=== PATIENT | male | born 1965 | race Caucasian/White ===

== ENCOUNTER 2021-06-21 05:29 | Inpatient (IN) | payer BC, OTHER ==
[2021-06-21 06:19] LABS: HEMATOCRIT 20.5 % (35.4-49); MCH 29.2 pg (25.7-33.7); MCHC 33.3 g/dl (32.0-35.9); MEAN CELL VOLUME 87.7 fl (80-96); MEAN PLT VOLUME 7.9 fl (7.5-11.1); PLATELET COUNT 352 10^3/uL (134-434); RBC 2.34 M/mm3 (4.00-5.60); WHITE BLOOD COUNT 11.4 K/mm3 (4.0-10.0)
[2021-06-21 06:39] LABS: HEMOGLOBIN 6.8 GM/dL (11.7-16.9)
[2021-06-21 06:46] LABS: INR 1.07 (0.83-1.09); PROTHROMBIN TIME (PATIENT) 12.3 SEC (9.7-13.0)
[2021-06-21 06:48] LABS: ALBUMIN 2.2 g/dl (3.4-5.0); CALCIUM 8.1 mg/dL (8.5-10.1)
[2021-06-21 06:49] LABS: ACTIVATED PTT 33.3 SECONDS (25.2-36.5)
[2021-06-21 06:53] LABS: BILIRUBIN,TOTAL 0.3 mg/dL (0.2-1); TOT PROT 5.9 g/dl (6.4-8.2)
[2021-06-21 07:06] LABS: LACTIC ACID 2.5 mmol/L (0.4-2.0)
[2021-06-21 09:23] LABS: ANISOCYTOSIS 2+; MACROCYTOSIS 0
[2021-06-21 10:25] LABS: HEMATOCRIT 22.3 % (35.4-49); HEMOGLOBIN 7.5 GM/dL (11.7-16.9); MCH 29.8 pg (25.7-33.7); MCHC 33.7 g/dl (32.0-35.9); MEAN CELL VOLUME 88.3 fl (80-96); MEAN PLT VOLUME 7.5 fl (7.5-11.1); PLATELET COUNT 317 10^3/uL (134-434); RBC 2.53 M/mm3 (4.00-5.60); RDW 16.1 % (11.9-15.9); WHITE BLOOD COUNT 11.9 K/mm3 (4.0-10.0)
[2021-06-21] MEDS ORDERED: PANTOPRAZOLE SODIUM 40 MG VIAL IVPUSH ONE (10:52)
[2021-06-21] MEDS ORDERED: PANTOPRAZOLE SODIUM 40 MG/100 ML BAG IVPB ONE (11:32)
[2021-06-21] MEDS ORDERED: PANTOPRAZOLE SODIUM 40 MG VIAL ONE (11:32)
[2021-06-21] MEDS ORDERED: DEXTROSE 5%-0.45% SALINE 1,000 ML IV SCH (14:15)
[2021-06-21] MEDS ORDERED: SODIUM CHLORIDE 250 ML IV PRN (15:11)
[2021-06-21 17:23] LABS: EPI CELLS 14 /uL (0-25.1); HYALINE CASTS 0 /uL (0-3.1); URINE APPEARANCE CLEAR; URINE BACTERIA 18 /uL (0-1359); URINE BILIRUBIN NEGATIVE (NEGATIVE); URINE COLOR YELLOW; URINE GLUCOSE (UA) 2+ (NEGATIVE); URINE KETONE NEGATIVE (NEGATIVE); URINE LEUK ESTERASE NEGATIVE (NEGATIVE); URINE NITRITE NEGATIVE (NEGATIVE); URINE PROTEIN 4+ (NEGATIVE); URINE RBC 10 /uL (0-23.9); URINE UROBILINOGEN 0.2 mg/dL (0.2-1.0); URINE WBC 9 /uL (0-25.8)
[2021-06-21] MEDS ORDERED: PANTOPRAZOLE SODIUM 40 MG VIAL IVPUSH SCH (22:00)
[2021-06-22 07:00] LABS: EOS % 2.8 % (0-4.5); HEMATOCRIT 23.6 % (35.4-49); HEMOGLOBIN 8.3 GM/dL (11.7-16.9); LYMPH % 5.9 % (8-40); MCH 30.5 pg (25.7-33.7); MCHC 35.1 g/dl (32.0-35.9); MEAN PLT VOLUME 7.2 fl (7.5-11.1); MONO % 7.5 % (3.8-10.2); NEUT % 82.8 % (42.8-82.8); PLATELET COUNT 340 10^3/uL (134-434); RBC 2.72 M/mm3 (4.00-5.60); RDW 15.3 % (11.9-15.9); WHITE BLOOD COUNT 10.6 K/mm3 (4.0-10.0)
[2021-06-22 07:34] LABS: IRON SERUM 41 ug/dL (50-175)
[2021-06-22 07:35] LABS: CALCIUM 7.6 mg/dL (8.5-10.1); TOTAL IRON BINDING CAPACITY 206 ug/dL (250-450)
[2021-06-22 07:36] LABS: MAGNESIUM 2.4 mg/dL (1.8-2.4)
[2021-06-22 07:37] LABS: TOT PROT 5.7 g/dl (6.4-8.2)
[2021-06-22 07:40] LABS: ALBUMIN 2.2 g/dl (3.4-5.0); BLOOD UREA NITROGEN 75.9 mg/dL (7-18)
[2021-06-22 07:42] LABS: PHOSPHOROUS 5.5 mg/dL (2.5-4.9)
[2021-06-22 07:45] LABS: BILIRUBIN,TOTAL 0.5 mg/dL (0.2-1)
[2021-06-22] MEDS ORDERED: CALCIUM ACETATE 667 MG CAPSULE (FP) PO SCH (10:00)
[2021-06-22] MEDS ORDERED: PANTOPRAZOLE SODIUM 40 MG VIAL IVPUSH SCH (10:00)
[2021-06-22] MEDS ORDERED: TAMSULOSIN HCL 0.4 MG CAP PO SCH (10:00)
[2021-06-22 11:08] LABS: SARS-CoV-2 NAA Not Detected (Not Detected)
[2021-06-22] MEDS: INSULIN SLIDING SCALE (NOVOLOG) 1 VIAL SQ SCH (18:04)
[2021-06-22] MEDS ORDERED: SODIUM CHLORIDE 250 ML IV PRN (19:12)
[2021-06-22] MEDS ORDERED: DEXTROSE 5%-0.45% SALINE 1,000 ML IV SCH (19:12)
[2021-06-22] MEDS: PANTOPRAZOLE SODIUM 40 MG VIAL IVPUSH SCH (21:45)
[2021-06-23] MEDS: INSULIN SLIDING SCALE (NOVOLOG) 1 VIAL SQ SCH ×4 (06:01→16:04)
[2021-06-23 09:14] LABS: BASO % 0.9 % (0-2.0); EOS % 2.6 % (0-4.5); HEMATOCRIT 22.3 % (35.4-49); HEMOGLOBIN 7.8 GM/dL (11.7-16.9); LYMPH % 7.4 % (8-40); MCH 30.7 pg (25.7-33.7); MCHC 35.1 g/dl (32.0-35.9); MEAN CELL VOLUME 87.5 fl (80-96); MEAN PLT VOLUME 7.5 fl (7.5-11.1); MONO % 8.3 % (3.8-10.2); NEUT % 80.8 % (42.8-82.8); PLATELET COUNT 360 10^3/uL (134-434); RBC 2.54 M/mm3 (4.00-5.60); RDW 16.2 % (11.9-15.9)
[2021-06-23 09:33] LABS: ALBUMIN 2.3 g/dl (3.4-5.0); CALCIUM 7.6 mg/dL (8.5-10.1)
[2021-06-23 09:37] LABS: CREATININE 4.3 mg/dL (0.55-1.3)
[2021-06-23 09:38] LABS: BILIRUBIN,TOTAL 0.5 mg/dL (0.2-1); TOT PROT 5.9 g/dl (6.4-8.2)
[2021-06-23 09:40] LABS: BLOOD UREA NITROGEN 33.9 mg/dL (7-18)
[2021-06-23] MEDS: PANTOPRAZOLE SODIUM 40 MG VIAL IVPUSH SCH ×2 (09:56→22:59)
[2021-06-23] MEDS ORDERED: PANTOPRAZOLE 40 MG TABLET PO SCH (10:00)
[2021-06-23] MEDS ORDERED: SODIUM CHLORIDE 250 ML IV PRN (12:08)
[2021-06-23] MEDS: hydrALAZINE HCL 25 MG TABLET (FP) PO SCH ×2 (13:04→22:59)
[2021-06-23] MEDS: amLODIPine BESYLATE 10 MG TABLET (FP) PO SCH (13:04)
[2021-06-24] MEDS: hydrALAZINE HCL 25 MG TABLET (FP) PO SCH ×3 (06:50→21:27)
[2021-06-24] MEDS: INSULIN SLIDING SCALE (NOVOLOG) 1 VIAL SQ SCH ×3 (06:54→16:58)
[2021-06-24 09:07] LABS: BASO % 0.9 % (0-2.0); EOS % 3.3 % (0-4.5); HEMATOCRIT 22.3 % (35.4-49); HEMOGLOBIN 7.7 GM/dL (11.7-16.9); LYMPH % 6.7 % (8-40); MCH 30.8 pg (25.7-33.7); MCHC 34.7 g/dl (32.0-35.9); MEAN CELL VOLUME 88.9 fl (80-96); MEAN PLT VOLUME 6.9 fl (7.5-11.1); MONO % 7.5 % (3.8-10.2); NEUT % 81.6 % (42.8-82.8); PLATELET COUNT 359 10^3/uL (134-434); RBC 2.51 M/mm3 (4.00-5.60); RDW 16.3 % (11.9-15.9); WHITE BLOOD COUNT 9.9 K/mm3 (4.0-10.0)
[2021-06-24 09:34] LABS: CALCIUM 8.1 mg/dL (8.5-10.1)
[2021-06-24 09:35] LABS: ALBUMIN 2.3 g/dl (3.4-5.0); BLOOD UREA NITROGEN 45.3 mg/dL (7-18); MAGNESIUM 2.3 mg/dL (1.8-2.4)
[2021-06-24 09:38] LABS: CREATININE 5.8 mg/dL (0.55-1.3)
[2021-06-24 09:39] LABS: BILIRUBIN,TOTAL 0.5 mg/dL (0.2-1)
[2021-06-24] MEDS ORDERED: EPOETIN ALFA-EPBX 10,000 UNIT/ML VIAL IVPUSH ONE (10:45)
[2021-06-24] MEDS ORDERED: PEG 3350/NA SULF BICARB CL/KCL 4000 ML SOLN.RECON PO ONE (13:23)
[2021-06-24] MEDS: PANTOPRAZOLE SODIUM 40 MG VIAL IVPUSH SCH ×2 (13:54→21:26)
[2021-06-24] MEDS: amLODIPine BESYLATE 10 MG TABLET (FP) PO SCH (13:54)
[2021-06-24] MEDS ORDERED: BISACODYL 5 MG TABLET.DR (FP) PO ONE (20:00)
[2021-06-25] MEDS ORDERED: MAGNESIUM CITRATE 300 ML BOTTLE PO ONE ×2 (01:15→03:00)
[2021-06-25] MEDS ORDERED: SODIUM PHOSPHATE/NA BIPHOS 133 ML ENEMA RC ONE (06:00)
[2021-06-25] MEDS ORDERED: MINERAL OIL ENEMA 133 ML ENEMA RC ONE (06:00)
[2021-06-25] MEDS: hydrALAZINE HCL 25 MG TABLET (FP) PO SCH ×3 (06:16→21:45)
[2021-06-25] MEDS: INSULIN SLIDING SCALE (NOVOLOG) 1 VIAL SQ SCH ×3 (06:32→17:08)
[2021-06-25] MEDS: amLODIPine BESYLATE 10 MG TABLET (FP) PO SCH (09:45)
[2021-06-25] MEDS: PANTOPRAZOLE SODIUM 40 MG VIAL IVPUSH SCH ×2 (09:45→21:46)
[2021-06-25 09:48] LABS: BASO % 0.9 % (0-2.0); EOS % 1.5 % (0-4.5); HEMATOCRIT 25.3 % (35.4-49); HEMOGLOBIN 8.6 GM/dL (11.7-16.9); LYMPH % 5.2 % (8-40); MCH 30.8 pg (25.7-33.7); MCHC 34.1 g/dl (32.0-35.9); MEAN CELL VOLUME 90.5 fl (80-96); MEAN PLT VOLUME 7.3 fl (7.5-11.1); NEUT % 85.4 % (42.8-82.8); PLATELET COUNT 424 10^3/uL (134-434); RDW 16.8 % (11.9-15.9); WHITE BLOOD COUNT 10.7 K/mm3 (4.0-10.0)
[2021-06-25 09:52] LABS: INR 1.03 (0.83-1.09); PROTHROMBIN TIME (PATIENT) 11.8 SEC (9.7-13.0)
[2021-06-25 10:12] LABS: ALBUMIN 2.5 g/dl (3.4-5.0); BLOOD UREA NITROGEN 21.6 mg/dL (7-18)
[2021-06-25 10:15] LABS: CREATININE 4.3 mg/dL (0.55-1.3)
[2021-06-25 10:16] LABS: BILIRUBIN,TOTAL 0.7 mg/dL (0.2-1); TOT PROT 6.6 g/dl (6.4-8.2)
[2021-06-25] MEDS ORDERED: SODIUM CHLORIDE 250 ML IV PRN (17:22)
[2021-06-26] MEDS: INSULIN SLIDING SCALE (NOVOLOG) 1 VIAL SQ SCH ×3 (06:21→15:58)
[2021-06-26] MEDS: hydrALAZINE HCL 25 MG TABLET (FP) PO SCH ×3 (06:21→21:02)
[2021-06-26 08:59] LABS: BASO % 0.7 % (0-2.0); EOS % 2.2 % (0-4.5); HEMATOCRIT 24.1 % (35.4-49); HEMOGLOBIN 8.1 GM/dL (11.7-16.9); LYMPH % 3.8 % (8-40); MCH 29.9 pg (25.7-33.7); MCHC 33.6 g/dl (32.0-35.9); MEAN CELL VOLUME 89.1 fl (80-96); MONO % 5.8 % (3.8-10.2); NEUT % 87.5 % (42.8-82.8); PLATELET COUNT 394 10^3/uL (134-434); RDW 16.9 % (11.9-15.9); WHITE BLOOD COUNT 11.1 K/mm3 (4.0-10.0)
[2021-06-26 09:26] LABS: CALCIUM 7.9 mg/dL (8.5-10.1)
[2021-06-26 09:27] LABS: ALBUMIN 2.3 g/dl (3.4-5.0); BLOOD UREA NITROGEN 36.6 mg/dL (7-18)
[2021-06-26 09:29] LABS: CREATININE 5.6 mg/dL (0.55-1.3)
[2021-06-26] MEDS ORDERED: EPOETIN ALFA-EPBX 10,000 UNIT/ML VIAL SQ ONE (09:30)
[2021-06-26 09:31] LABS: BILIRUBIN,TOTAL 0.3 mg/dL (0.2-1); TOT PROT 6.3 g/dl (6.4-8.2)
[2021-06-26] MEDS: amLODIPine BESYLATE 10 MG TABLET (FP) PO SCH (13:01)
[2021-06-26] MEDS: PANTOPRAZOLE SODIUM 40 MG VIAL IVPUSH SCH ×2 (13:01→21:02)
[2021-06-27] MEDS: ASPIRIN 81 MG CHEWABLE TABLETS PO SCH ×2 (00:01→09:32)
[2021-06-27] MEDS: hydrALAZINE HCL 25 MG TABLET (FP) PO SCH ×3 (06:15→22:12)
[2021-06-27] MEDS: INSULIN SLIDING SCALE (NOVOLOG) 1 VIAL SQ SCH ×3 (06:22→16:25)
[2021-06-27] MEDS: amLODIPine BESYLATE 10 MG TABLET (FP) PO SCH (09:33)
[2021-06-27] MEDS: POLYETHYLENE GLYCOL (HEALTHYLAX) 3350 17 GM PACKET PO SCH (09:33)
[2021-06-27] MEDS: PANTOPRAZOLE SODIUM 40 MG VIAL IVPUSH SCH ×2 (09:33→22:12)
[2021-06-27 09:38] LABS: BASO % 0.9 % (0-2.0); EOS % 2.8 % (0-4.5); HEMATOCRIT 24.5 % (35.4-49); HEMOGLOBIN 8.3 GM/dL (11.7-16.9); LYMPH % 7.5 % (8-40); MCH 30.2 pg (25.7-33.7); MCHC 33.8 g/dl (32.0-35.9); MEAN CELL VOLUME 89.3 fl (80-96); MEAN PLT VOLUME 7.5 fl (7.5-11.1); MONO % 6.7 % (3.8-10.2); NEUT % 82.1 % (42.8-82.8); PLATELET COUNT 403 10^3/uL (134-434); RBC 2.74 M/mm3 (4.00-5.60); RDW 16.5 % (11.9-15.9); WHITE BLOOD COUNT 10.3 K/mm3 (4.0-10.0)
[2021-06-27 10:03] LABS: CALCIUM 8.2 mg/dL (8.5-10.1)
[2021-06-27 10:04] LABS: ALBUMIN 2.3 g/dl (3.4-5.0); BLOOD UREA NITROGEN 30.7 mg/dL (7-18); PHOSPHOROUS 4.5 mg/dL (2.5-4.9)
[2021-06-27 10:05] LABS: BILIRUBIN,TOTAL 0.4 mg/dL (0.2-1); MAGNESIUM 2.4 mg/dL (1.8-2.4); TOT PROT 6.2 g/dl (6.4-8.2)
[2021-06-27 10:07] LABS: CREATININE 4.2 mg/dL (0.55-1.3)
[2021-06-27 13:07] LABS: SARS-CoV-2 NAA Not Detected (Not Detected)
[2021-06-27] MEDS: ATORVASTATIN CA 80 MG TABLET (FP) PO SCH ×2 (22:12)
[2021-06-28] MEDS: hydrALAZINE HCL 25 MG TABLET (FP) PO SCH ×3 (06:51→21:54)
[2021-06-28] MEDS: INSULIN SLIDING SCALE (NOVOLOG) 1 VIAL SQ SCH ×3 (06:51→16:55)
[2021-06-28] MEDS ORDERED: SODIUM CHLORIDE 250 ML IV PRN (07:00)
[2021-06-28] MEDS ORDERED: EPOETIN ALFA-EPBX 10,000 UNIT/ML VIAL IVPUSH ONE (07:00)
[2021-06-28 08:13] LABS: EOS % 2.9 % (0-4.5); HEMATOCRIT 24.6 % (35.4-49); HEMOGLOBIN 8.2 GM/dL (11.7-16.9); LYMPH % 4.6 % (8-40); MCH 30.3 pg (25.7-33.7); MCHC 33.3 g/dl (32.0-35.9); MEAN PLT VOLUME 7.4 fl (7.5-11.1); MONO % 7.1 % (3.8-10.2); NEUT % 84.4 % (42.8-82.8); PLATELET COUNT 417 10^3/uL (134-434); RDW 16.6 % (11.9-15.9); WHITE BLOOD COUNT 10.3 K/mm3 (4.0-10.0)
[2021-06-28 08:29] LABS: ALBUMIN 2.3 g/dl (3.4-5.0); BLOOD UREA NITROGEN 39.6 mg/dL (7-18)
[2021-06-28 08:32] LABS: CREATININE 5.5 mg/dL (0.55-1.3)
[2021-06-28 08:33] LABS: BILIRUBIN,TOTAL 0.4 mg/dL (0.2-1); TOT PROT 6.2 g/dl (6.4-8.2)
[2021-06-28] MEDS: amLODIPine BESYLATE 10 MG TABLET (FP) PO SCH (11:04)
[2021-06-28] MEDS: PANTOPRAZOLE SODIUM 40 MG VIAL IVPUSH SCH ×2 (11:04→21:54)
[2021-06-28] MEDS: POLYETHYLENE GLYCOL (HEALTHYLAX) 3350 17 GM PACKET PO SCH (11:05)
[2021-06-28 21:23] LABS: BASO % 1.1 % (0-2.0); HEMATOCRIT 26.3 % (35.4-49); HEMOGLOBIN 8.9 GM/dL (11.7-16.9); LYMPH % 7.9 % (8-40); MEAN CELL VOLUME 88.4 fl (80-96); MEAN PLT VOLUME 7.3 fl (7.5-11.1); MONO % 7.6 % (3.8-10.2); NEUT % 81.4 % (42.8-82.8); PLATELET COUNT 402 10^3/uL (134-434); RBC 2.97 M/mm3 (4.00-5.60); RDW 16.3 % (11.9-15.9); WHITE BLOOD COUNT 9.8 K/mm3 (4.0-10.0)
[2021-06-28] MEDS: ATORVASTATIN CA 80 MG TABLET (FP) PO SCH (21:54)
[2021-06-29] MEDS: hydrALAZINE HCL 25 MG TABLET (FP) PO SCH ×3 (05:57→22:19)
[2021-06-29] MEDS: INSULIN SLIDING SCALE (NOVOLOG) 1 VIAL SQ SCH ×3 (06:06→17:31)
[2021-06-29 07:40] LABS: CALCIUM 7.8 mg/dL (8.5-10.1)
[2021-06-29 07:41] LABS: ALBUMIN 2.3 g/dl (3.4-5.0); BLOOD UREA NITROGEN 17.4 mg/dL (7-18)
[2021-06-29 07:42] LABS: BASO % 1.3 % (0-2.0); EOS % 3.6 % (0-4.5); HEMOGLOBIN 9.5 GM/dL (11.7-16.9); LYMPH % 9.1 % (8-40); MCHC 35.2 g/dl (32.0-35.9); MEAN PLT VOLUME 7.3 fl (7.5-11.1); MONO % 9.3 % (3.8-10.2); NEUT % 76.7 % (42.8-82.8); PLATELET COUNT 378 10^3/uL (134-434); RBC 3.07 M/mm3 (4.00-5.60); RDW 16.6 % (11.9-15.9); WHITE BLOOD COUNT 8.4 K/mm3 (4.0-10.0)
[2021-06-29 07:44] LABS: CREATININE 3.3 mg/dL (0.55-1.3)
[2021-06-29 07:45] LABS: BILIRUBIN,TOTAL 0.5 mg/dL (0.2-1)
[2021-06-29 07:56] LABS: INR 1.08 (0.83-1.09); PROTHROMBIN TIME (PATIENT) 12.4 SEC (9.7-13.0)
[2021-06-29] MEDS: amLODIPine BESYLATE 10 MG TABLET (FP) PO SCH (10:42)
[2021-06-29] MEDS: POLYETHYLENE GLYCOL (HEALTHYLAX) 3350 17 GM PACKET PO SCH (10:43)
[2021-06-29] MEDS: PANTOPRAZOLE SODIUM 40 MG VIAL IVPUSH SCH ×2 (10:56→22:19)
[2021-06-29] MEDS: ATORVASTATIN CA 80 MG TABLET (FP) PO SCH (22:19)
[2021-06-30] MEDS: INSULIN SLIDING SCALE (NOVOLOG) 1 VIAL SQ SCH ×3 (06:12→17:39)
[2021-06-30] MEDS: hydrALAZINE HCL 25 MG TABLET (FP) PO SCH ×3 (06:13→21:22)
[2021-06-30] MEDS: POLYETHYLENE GLYCOL (HEALTHYLAX) 3350 17 GM PACKET PO SCH (09:24)
[2021-06-30] MEDS: amLODIPine BESYLATE 10 MG TABLET (FP) PO SCH (09:24)
[2021-06-30] MEDS: PANTOPRAZOLE SODIUM 40 MG VIAL IVPUSH SCH ×2 (09:25→21:22)
[2021-06-30] MEDS: ATORVASTATIN CA 80 MG TABLET (FP) PO SCH (21:22)
[2021-07-01] MEDS: hydrALAZINE HCL 25 MG TABLET (FP) PO SCH ×4 (06:35→21:08)
[2021-07-01] MEDS: INSULIN SLIDING SCALE (NOVOLOG) 1 VIAL SQ SCH ×3 (06:35→16:49)
[2021-07-01 07:41] LABS: BASO % 1.7 % (0-2.0); EOS % 2.9 % (0-4.5); HEMATOCRIT 22.9 % (35.4-49); HEMOGLOBIN 7.9 GM/dL (11.7-16.9); LYMPH % 11.1 % (8-40); MCH 30.4 pg (25.7-33.7); MCHC 34.5 g/dl (32.0-35.9); MEAN PLT VOLUME 7.2 fl (7.5-11.1); MONO % 10.6 % (3.8-10.2); NEUT % 73.7 % (42.8-82.8); PLATELET COUNT 382 10^3/uL (134-434); RDW 15.9 % (11.9-15.9); WHITE BLOOD COUNT 7.2 K/mm3 (4.0-10.0)
[2021-07-01] MEDS ORDERED: SODIUM CHLORIDE 250 ML IV PRN (08:00)
[2021-07-01] MEDS ORDERED: IRON SUCROSE INJECTION 100 MG in SODIUM CHLORIDE 95 ML IVPB ONE (08:30)
[2021-07-01] MEDS ORDERED: EPOETIN ALFA-EPBX 10,000 UNIT/ML VIAL SQ ONE (08:30)
[2021-07-01] MEDS: PANTOPRAZOLE SODIUM 40 MG VIAL IVPUSH SCH (10:33)
[2021-07-01] MEDS: amLODIPine BESYLATE 10 MG TABLET (FP) PO SCH (10:33)
[2021-07-01] MEDS: POLYETHYLENE GLYCOL (HEALTHYLAX) 3350 17 GM PACKET PO SCH (10:33)
[2021-07-01] MEDS ORDERED: BISACODYL 5 MG TABLET.DR (FP) PO ONE (16:00)
[2021-07-01] MEDS ORDERED: PEG 3350/NA SULF BICARB CL/KCL 4000 ML SOLN.RECON PO ONE (17:00)
[2021-07-01 18:44] LABS: BASO % 1.1 % (0-2.0); EOS % 0.9 % (0-4.5); HEMATOCRIT 23.7 % (35.4-49); HEMOGLOBIN 8.1 GM/dL (11.7-16.9); LYMPH % 6.7 % (8-40); MCH 30.3 pg (25.7-33.7); MCHC 34.2 g/dl (32.0-35.9); MEAN CELL VOLUME 88.5 fl (80-96); MEAN PLT VOLUME 7.5 fl (7.5-11.1); MONO % 8.6 % (3.8-10.2); NEUT % 82.7 % (42.8-82.8); PLATELET COUNT 355 10^3/uL (134-434); RBC 2.68 M/mm3 (4.00-5.60); RDW 16.2 % (11.9-15.9); WHITE BLOOD COUNT 6.5 K/mm3 (4.0-10.0)
[2021-07-01] MEDS: ATORVASTATIN CA 80 MG TABLET (FP) PO SCH (21:08)
[2021-07-02] MEDS: hydrALAZINE HCL 25 MG TABLET (FP) PO SCH ×3 (05:51→21:17)
[2021-07-02] MEDS: INSULIN SLIDING SCALE (NOVOLOG) 1 VIAL SQ SCH ×3 (06:41→17:09)
[2021-07-02] MEDS ORDERED: EPOETIN ALFA-EPBX 10,000 UNIT/ML VIAL SQ ONE (08:00)
[2021-07-02 08:08] LABS: BASO % 1.7 % (0-2.0); EOS % 2.2 % (0-4.5); HEMATOCRIT 23.3 % (35.4-49); HEMOGLOBIN 7.8 GM/dL (11.7-16.9); LYMPH % 9.3 % (8-40); MCHC 33.5 g/dl (32.0-35.9); MEAN CELL VOLUME 89.5 fl (80-96); MEAN PLT VOLUME 7.7 fl (7.5-11.1); MONO % 11.4 % (3.8-10.2); NEUT % 75.4 % (42.8-82.8); PLATELET COUNT 359 10^3/uL (134-434); RDW 15.8 % (11.9-15.9); WHITE BLOOD COUNT 6.7 K/mm3 (4.0-10.0)
[2021-07-02 08:31] LABS: CALCIUM 7.7 mg/dL (8.5-10.1)
[2021-07-02 08:32] LABS: BLOOD UREA NITROGEN 16.8 mg/dL (7-18)
[2021-07-02 08:35] LABS: CREATININE 3.8 mg/dL (0.55-1.3)
[2021-07-02] MEDS: amLODIPine BESYLATE 10 MG TABLET (FP) PO SCH (09:15)
[2021-07-02] MEDS: POLYETHYLENE GLYCOL (HEALTHYLAX) 3350 17 GM PACKET PO SCH (09:16)
[2021-07-02] MEDS: PANTOPRAZOLE SODIUM 40 MG VIAL IVPUSH SCH (09:20)
[2021-07-02] MEDS ORDERED: IRON SUCROSE INJECTION 200 MG in SODIUM CHLORIDE 90 ML IVPB ONE (14:00)
[2021-07-02 18:24] LABS: HEMATOCRIT 22.8 % (35.4-49); HEMOGLOBIN 7.6 GM/dL (11.7-16.9); MCH 29.5 pg (25.7-33.7); MCHC 33.2 g/dl (32.0-35.9); MEAN PLT VOLUME 7.4 fl (7.5-11.1); PLATELET COUNT 343 10^3/uL (134-434); RBC 2.57 M/mm3 (4.00-5.60); WHITE BLOOD COUNT 5.8 K/mm3 (4.0-10.0)
[2021-07-02] MEDS: ATORVASTATIN CA 80 MG TABLET (FP) PO SCH (21:17)
[2021-07-03] MEDS: INSULIN SLIDING SCALE (NOVOLOG) 1 VIAL SQ SCH ×3 (06:14→17:27)
[2021-07-03] MEDS: hydrALAZINE HCL 25 MG TABLET (FP) PO SCH ×3 (06:14→22:36)
[2021-07-03] MEDS ORDERED: SODIUM CHLORIDE 250 ML IV PRN (07:21)
[2021-07-03 07:50] LABS: BASO % 1.2 % (0-2.0); EOS % 1.6 % (0-4.5); HEMATOCRIT 22.1 % (35.4-49); HEMOGLOBIN 7.5 GM/dL (11.7-16.9); MCH 30.4 pg (25.7-33.7); MEAN CELL VOLUME 89.5 fl (80-96); MEAN PLT VOLUME 7.5 fl (7.5-11.1); MONO % 10.6 % (3.8-10.2); NEUT % 79.6 % (42.8-82.8); PLATELET COUNT 341 10^3/uL (134-434); RBC 2.47 M/mm3 (4.00-5.60); RDW 16.5 % (11.9-15.9); RETICULOCYTES 2.57 % (0.5-1.5); WHITE BLOOD COUNT 7.7 K/mm3 (4.0-10.0)
[2021-07-03 07:52] LABS: CALCIUM 7.5 mg/dL (8.5-10.1)
[2021-07-03 07:53] LABS: BLOOD UREA NITROGEN 25.6 mg/dL (7-18)
[2021-07-03 07:56] LABS: CREATININE 5.6 mg/dL (0.55-1.3)
[2021-07-03] MEDS ORDERED: EPOETIN ALFA-EPBX 10,000 UNIT/ML VIAL SQ ONE (08:00)
[2021-07-03] MEDS: ALBUMIN HUMAN 25% 12.5 GM/50 ML VIAL IV SCH ×4 (09:00→11:10)
[2021-07-03] MEDS: amLODIPine BESYLATE 10 MG TABLET (FP) PO SCH ×2 (10:22→11:45)
[2021-07-03] MEDS: PANTOPRAZOLE SODIUM 40 MG VIAL IVPUSH SCH ×2 (10:22→11:46)
[2021-07-03] MEDS: POLYETHYLENE GLYCOL (HEALTHYLAX) 3350 17 GM PACKET PO SCH (10:22)
[2021-07-03 21:33] LABS: HEMOGLOBIN 7.7 GM/dL (11.7-16.9); MCH 29.9 pg (25.7-33.7); MCHC 33.4 g/dl (32.0-35.9); MEAN CELL VOLUME 89.6 fl (80-96); MEAN PLT VOLUME 7.8 fl (7.5-11.1); PLATELET COUNT 382 10^3/uL (134-434); RBC 2.57 M/mm3 (4.00-5.60); RDW 16.2 % (11.9-15.9); WHITE BLOOD COUNT 7.3 K/mm3 (4.0-10.0)
[2021-07-03] MEDS: ATORVASTATIN CA 80 MG TABLET (FP) PO SCH (22:36)
[2021-07-04] MEDS: hydrALAZINE HCL 25 MG TABLET (FP) PO SCH ×3 (06:22→21:19)
[2021-07-04] MEDS: INSULIN SLIDING SCALE (NOVOLOG) 1 VIAL SQ SCH ×3 (06:24→17:33)
[2021-07-04 07:13] LABS: HEMATOCRIT 22.2 % (35.4-49); HEMOGLOBIN 7.7 GM/dL (11.7-16.9); MCH 30.4 pg (25.7-33.7); MCHC 34.6 g/dl (32.0-35.9); MEAN CELL VOLUME 87.8 fl (80-96); MEAN PLT VOLUME 7.5 fl (7.5-11.1); PLATELET COUNT 342 10^3/uL (134-434); RBC 2.52 M/mm3 (4.00-5.60); RDW 15.9 % (11.9-15.9); WHITE BLOOD COUNT 7.7 K/mm3 (4.0-10.0)
[2021-07-04 07:28] LABS: BLOOD UREA NITROGEN 20.4 mg/dL (7-18)
[2021-07-04 07:31] LABS: CREATININE 4.3 mg/dL (0.55-1.3)
[2021-07-04] MEDS: PANTOPRAZOLE SODIUM 40 MG VIAL IVPUSH SCH (10:09)
[2021-07-04] MEDS: POLYETHYLENE GLYCOL (HEALTHYLAX) 3350 17 GM PACKET PO SCH (10:10)
[2021-07-04] MEDS: amLODIPine BESYLATE 10 MG TABLET (FP) PO SCH (10:10)
[2021-07-04 17:34] LABS: EPI CELLS >36 /uL (0-25.1); HYALINE CASTS 5 /uL (0-3.1); PH,URINE 6.5 (5.0-8.0); URINE APPEARANCE TURBID; URINE BACTERIA >9,000 /uL (0-1359); URINE BILIRUBIN NEGATIVE (NEGATIVE); URINE COLOR YELLOW; URINE GLUCOSE (UA) NEGATIVE (NEGATIVE); URINE KETONE NEGATIVE (NEGATIVE); URINE LEUK ESTERASE 3+ (NEGATIVE); URINE NITRITE NEGATIVE (NEGATIVE); URINE PROTEIN 4+ (NEGATIVE); URINE UROBILINOGEN 0.2 mg/dL (0.2-1.0); URINE WBC 21413 /uL (0-25.8)
[2021-07-04 20:20] LABS: URINE RBC 129.2 /uL (0-23.9)
[2021-07-04] MEDS: ATORVASTATIN CA 80 MG TABLET (FP) PO SCH (21:19)
[2021-07-05] MEDS: INSULIN SLIDING SCALE (NOVOLOG) 1 VIAL SQ SCH ×3 (06:17→17:14)
[2021-07-05] MEDS: hydrALAZINE HCL 25 MG TABLET (FP) PO SCH ×3 (06:34→21:29)
[2021-07-05 07:11] LABS: HEMATOCRIT 25.2 % (35.4-49); HEMOGLOBIN 8.5 GM/dL (11.7-16.9); MCH 29.8 pg (25.7-33.7); MCHC 33.7 g/dl (32.0-35.9); MEAN CELL VOLUME 88.5 fl (80-96); MEAN PLT VOLUME 7.4 fl (7.5-11.1); PLATELET COUNT 362 10^3/uL (134-434); RBC 2.84 M/mm3 (4.00-5.60); WHITE BLOOD COUNT 8.4 K/mm3 (4.0-10.0)
[2021-07-05 07:29] LABS: CALCIUM 8.2 mg/dL (8.5-10.1)
[2021-07-05 07:31] LABS: BLOOD UREA NITROGEN 39.2 mg/dL (7-18)
[2021-07-05] MEDS ORDERED: SODIUM CHLORIDE 250 ML IV PRN (07:33)
[2021-07-05 07:34] LABS: CREATININE 6.1 mg/dL (0.55-1.3)
[2021-07-05] MEDS ORDERED: EPOETIN ALFA-EPBX 10,000 UNIT/ML VIAL IVPUSH ONE (08:00)
[2021-07-05] MEDS ORDERED: INSULIN (NOVOLOG) ASPART 100 UNITS/ML 10ML VIAL ONE (11:41)
[2021-07-05] MEDS: PANTOPRAZOLE SODIUM 40 MG VIAL IVPUSH SCH (11:57)
[2021-07-05] MEDS: POLYETHYLENE GLYCOL (HEALTHYLAX) 3350 17 GM PACKET PO SCH (11:58)
[2021-07-05] MEDS: amLODIPine BESYLATE 10 MG TABLET (FP) PO SCH (11:59)
[2021-07-05] MEDS ORDERED: PIPERACILLIN/TAZOBACTAM 2.25 GM VIAL IVPB ONE ×2 (18:09→18:57)
[2021-07-05] MEDS ORDERED: DEXTROSE 5%-WATER - 50 ML IVPB ONE ×2 (18:09→18:57)
[2021-07-05] MEDS: PIPERACILLIN/TAZOB 2.25 GM 2.25 GM in DEXTROSE 5%-WATER - 50 ML IVPB SCH (18:51)
[2021-07-05] MEDS: ATORVASTATIN CA 80 MG TABLET (FP) PO SCH (21:29)
[2021-07-05] MEDS ORDERED: PIPERACILLIN/TAZOB 2.25 GM 2.25 GM in DEXTROSE 5%-WATER - 50 ML IVPB SCH (22:00)
[2021-07-06] MEDS ORDERED: PIPERACILLIN/TAZOBACTAM 2.25 GM VIAL IVPB ONE (05:05)
[2021-07-06] MEDS ORDERED: DEXTROSE 5%-WATER - 50 ML IVPB ONE (05:05)
[2021-07-06] MEDS: hydrALAZINE HCL 25 MG TABLET (FP) PO SCH ×3 (06:23→21:59)
[2021-07-06] MEDS: PIPERACILLIN/TAZOB 2.25 GM 2.25 GM in DEXTROSE 5%-WATER - 50 ML IVPB SCH (06:24)
[2021-07-06] MEDS: INSULIN SLIDING SCALE (NOVOLOG) 1 VIAL SQ SCH ×3 (06:36→16:30)
[2021-07-06 07:43] LABS: HEMATOCRIT 22.6 % (35.4-49); HEMOGLOBIN 7.7 GM/dL (11.7-16.9); MCH 30.3 pg (25.7-33.7); MEAN CELL VOLUME 89.2 fl (80-96); MEAN PLT VOLUME 7.8 fl (7.5-11.1); PLATELET COUNT 313 10^3/uL (134-434); RBC 2.54 M/mm3 (4.00-5.60); RDW 15.8 % (11.9-15.9); WHITE BLOOD COUNT 7.8 K/mm3 (4.0-10.0)
[2021-07-06 08:05] LABS: BLOOD UREA NITROGEN 24.2 mg/dL (7-18); CALCIUM 8.1 mg/dL (8.5-10.1)
[2021-07-06 08:09] LABS: CREATININE 4.3 mg/dL (0.55-1.3)
[2021-07-06] MEDS: TAMSULOSIN HCL 0.4 MG CAP PO SCH (10:24)
[2021-07-06] MEDS: amLODIPine BESYLATE 10 MG TABLET (FP) PO SCH (10:24)
[2021-07-06] MEDS: PANTOPRAZOLE SODIUM 40 MG VIAL IVPUSH SCH (10:24)
[2021-07-06] MEDS: POLYETHYLENE GLYCOL (HEALTHYLAX) 3350 17 GM PACKET PO SCH (10:24)
[2021-07-06] MEDS: ATORVASTATIN CA 80 MG TABLET (FP) PO SCH (21:58)
[2021-07-07] MEDS: hydrALAZINE HCL 25 MG TABLET (FP) PO SCH ×3 (05:53→21:24)
[2021-07-07] MEDS: INSULIN SLIDING SCALE (NOVOLOG) 1 VIAL SQ SCH ×3 (06:44→16:40)
[2021-07-07 07:11] LABS: EOS % 3.7 % (0-4.5); HEMATOCRIT 22.9 % (35.4-49); HEMOGLOBIN 7.6 GM/dL (11.7-16.9); LYMPH % 13.4 % (8-40); MCH 29.6 pg (25.7-33.7); MCHC 33.2 g/dl (32.0-35.9); MEAN CELL VOLUME 89.1 fl (80-96); MEAN PLT VOLUME 7.8 fl (7.5-11.1); MONO % 10.3 % (3.8-10.2); NEUT % 71.6 % (42.8-82.8); PLATELET COUNT 328 10^3/uL (134-434); RBC 2.57 M/mm3 (4.00-5.60); RDW 15.6 % (11.9-15.9); WHITE BLOOD COUNT 7.2 K/mm3 (4.0-10.0)
[2021-07-07 07:28] LABS: ALBUMIN 2.2 g/dl (3.4-5.0); BLOOD UREA NITROGEN 42.5 mg/dL (7-18)
[2021-07-07 07:31] LABS: CREATININE 6.2 mg/dL (0.55-1.3)
[2021-07-07 07:33] LABS: BILIRUBIN,TOTAL 0.6 mg/dL (0.2-1); TOT PROT 6.1 g/dl (6.4-8.2)
[2021-07-07] MEDS: amLODIPine BESYLATE 10 MG TABLET (FP) PO SCH (09:31)
[2021-07-07] MEDS: VITAMIN B COMP W-C 1 EA TABLET (NEPHRO-VITE) PO SCH (09:31)
[2021-07-07] MEDS: PANTOPRAZOLE SODIUM 40 MG VIAL IVPUSH SCH (09:31)
[2021-07-07] MEDS: POLYETHYLENE GLYCOL (HEALTHYLAX) 3350 17 GM PACKET PO SCH (09:32)
[2021-07-07] MEDS: TAMSULOSIN HCL 0.4 MG CAP PO SCH (09:32)
[2021-07-07] MEDS ORDERED: EPOETIN ALFA 10,000 UNIT/1 ML VIAL SQ ONE (10:55)
[2021-07-07] MEDS: ATORVASTATIN CA 80 MG TABLET (FP) PO SCH (21:24)
[2021-07-08] MEDS: hydrALAZINE HCL 25 MG TABLET (FP) PO SCH ×3 (06:21→21:19)
[2021-07-08] MEDS: INSULIN SLIDING SCALE (NOVOLOG) 1 VIAL SQ SCH ×3 (06:54→16:55)
[2021-07-08 07:34] LABS: BASO % 1.3 % (0-2.0); EOS % 3.8 % (0-4.5); HEMATOCRIT 24.5 % (35.4-49); HEMOGLOBIN 8.2 GM/dL (11.7-16.9); LYMPH % 10.7 % (8-40); MCH 29.7 pg (25.7-33.7); MCHC 33.3 g/dl (32.0-35.9); MEAN CELL VOLUME 89.3 fl (80-96); MEAN PLT VOLUME 7.6 fl (7.5-11.1); NEUT % 76.2 % (42.8-82.8); PLATELET COUNT 348 10^3/uL (134-434); RBC 2.75 M/mm3 (4.00-5.60); RDW 15.8 % (11.9-15.9); WHITE BLOOD COUNT 8.2 K/mm3 (4.0-10.0)
[2021-07-08 07:50] LABS: ALBUMIN 2.3 g/dl (3.4-5.0)
[2021-07-08 07:53] LABS: CREATININE 7.3 mg/dL (0.55-1.3)
[2021-07-08 07:54] LABS: BILIRUBIN,TOTAL 0.6 mg/dL (0.2-1); TOT PROT 6.3 g/dl (6.4-8.2)
[2021-07-08 07:56] LABS: CALCIUM 7.8 mg/dL (8.5-10.1)
[2021-07-08 07:58] LABS: BLOOD UREA NITROGEN 59.6 mg/dL (7-18)
[2021-07-08] MEDS: TAMSULOSIN HCL 0.4 MG CAP PO SCH (08:54)
[2021-07-08] MEDS ORDERED: EPOETIN ALFA-EPBX 10,000 UNIT/ML VIAL IVPUSH ONE (09:00)
[2021-07-08] MEDS: PANTOPRAZOLE SODIUM 40 MG VIAL IVPUSH SCH (09:07)
[2021-07-08] MEDS: POLYETHYLENE GLYCOL (HEALTHYLAX) 3350 17 GM PACKET PO SCH (11:37)
[2021-07-08] MEDS: VITAMIN B COMP W-C 1 EA TABLET (NEPHRO-VITE) PO SCH (11:37)
[2021-07-08] MEDS: amLODIPine BESYLATE 10 MG TABLET (FP) PO SCH (11:38)
[2021-07-08] MEDS: ATORVASTATIN CA 80 MG TABLET (FP) PO SCH (21:34)
[2021-07-09] MEDS: INSULIN SLIDING SCALE (NOVOLOG) 1 VIAL SQ SCH ×3 (06:59→17:42)
[2021-07-09] MEDS: hydrALAZINE HCL 25 MG TABLET (FP) PO SCH ×3 (06:59→21:27)
[2021-07-09 08:27] LABS: HEMATOCRIT 24.2 % (35.4-49); HEMOGLOBIN 8.1 GM/dL (11.7-16.9); MCH 29.9 pg (25.7-33.7); MCHC 33.6 g/dl (32.0-35.9); MEAN CELL VOLUME 88.9 fl (80-96); PLATELET COUNT 324 10^3/uL (134-434); RBC 2.73 M/mm3 (4.00-5.60); RDW 15.5 % (11.9-15.9); WHITE BLOOD COUNT 8.1 K/mm3 (4.0-10.0)
[2021-07-09 08:52] LABS: MAGNESIUM 1.9 mg/dL (1.8-2.4)
[2021-07-09 08:55] LABS: CREATININE 4.6 mg/dL (0.55-1.3)
[2021-07-09 08:57] LABS: BLOOD UREA NITROGEN 32.6 mg/dL (7-18)
[2021-07-09] MEDS: POLYETHYLENE GLYCOL (HEALTHYLAX) 3350 17 GM PACKET PO SCH (10:39)
[2021-07-09] MEDS: TAMSULOSIN HCL 0.4 MG CAP PO SCH (10:39)
[2021-07-09] MEDS: amLODIPine BESYLATE 10 MG TABLET (FP) PO SCH (10:39)
[2021-07-09] MEDS: PANTOPRAZOLE SODIUM 40 MG VIAL IVPUSH SCH (10:39)
[2021-07-09] MEDS: VITAMIN B COMP W-C 1 EA TABLET (NEPHRO-VITE) PO SCH (10:39)
[2021-07-09] MEDS: ATORVASTATIN CA 80 MG TABLET (FP) PO SCH (21:26)
[2021-07-10] MEDS: INSULIN SLIDING SCALE (NOVOLOG) 1 VIAL SQ SCH ×3 (06:39→16:53)
[2021-07-10] MEDS: hydrALAZINE HCL 25 MG TABLET (FP) PO SCH ×3 (06:39→22:07)
[2021-07-10] MEDS ORDERED: SODIUM CHLORIDE 250 ML IV PRN (07:00)
[2021-07-10] MEDS ORDERED: EPOETIN ALFA-EPBX 10,000 UNIT/ML VIAL SQ ONE (07:00)
[2021-07-10 07:20] LABS: CALCIUM 8.5 mg/dL (8.5-10.1)
[2021-07-10 07:21] LABS: BLOOD UREA NITROGEN 48.2 mg/dL (7-18); MAGNESIUM 2.2 mg/dL (1.8-2.4)
[2021-07-10 07:24] LABS: CREATININE 5.8 mg/dL (0.55-1.3); PHOSPHOROUS 5.7 mg/dL (2.5-4.9)
[2021-07-10] MEDS: TAMSULOSIN HCL 0.4 MG CAP PO SCH (09:00)
[2021-07-10] MEDS: POLYETHYLENE GLYCOL (HEALTHYLAX) 3350 17 GM PACKET PO SCH (09:00)
[2021-07-10] MEDS: VITAMIN B COMP W-C 1 EA TABLET (NEPHRO-VITE) PO SCH (11:22)
[2021-07-10] MEDS: amLODIPine BESYLATE 10 MG TABLET (FP) PO SCH (11:24)
[2021-07-10] MEDS: PANTOPRAZOLE SODIUM 40 MG VIAL IVPUSH SCH (11:53)
[2021-07-10] MEDS: ATORVASTATIN CA 80 MG TABLET (FP) PO SCH (22:06)
[2021-07-11] MEDS: hydrALAZINE HCL 25 MG TABLET (FP) PO SCH ×3 (06:52→21:47)
[2021-07-11] MEDS: INSULIN SLIDING SCALE (NOVOLOG) 1 VIAL SQ SCH ×3 (06:53→16:48)
[2021-07-11 07:07] LABS: SARS-CoV-2 NAA Not Detected (Not Detected)
[2021-07-11 07:09] LABS: HEMATOCRIT 25.7 % (35.4-49); HEMOGLOBIN 8.7 GM/dL (11.7-16.9); MCH 30.2 pg (25.7-33.7); MCHC 33.8 g/dl (32.0-35.9); MEAN CELL VOLUME 89.4 fl (80-96); MEAN PLT VOLUME 7.8 fl (7.5-11.1); PLATELET COUNT 338 10^3/uL (134-434); RBC 2.87 M/mm3 (4.00-5.60); RDW 15.7 % (11.9-15.9); WHITE BLOOD COUNT 9.8 K/mm3 (4.0-10.0)
[2021-07-11 07:12] LABS: MAGNESIUM 2.1 mg/dL (1.8-2.4)
[2021-07-11 07:15] LABS: CREATININE 4.4 mg/dL (0.55-1.3); PHOSPHOROUS 3.6 mg/dL (2.5-4.9)
[2021-07-11] MEDS: POLYETHYLENE GLYCOL (HEALTHYLAX) 3350 17 GM PACKET PO SCH (09:16)
[2021-07-11] MEDS: PANTOPRAZOLE SODIUM 40 MG VIAL IVPUSH SCH (09:16)
[2021-07-11] MEDS: amLODIPine BESYLATE 10 MG TABLET (FP) PO SCH (09:16)
[2021-07-11] MEDS: TAMSULOSIN HCL 0.4 MG CAP PO SCH (09:16)
[2021-07-11] MEDS: VITAMIN B COMP W-C 1 EA TABLET (NEPHRO-VITE) PO SCH (09:16)
[2021-07-11 12:36] VITALS: BMI 18.6
[2021-07-11] MEDS: ATORVASTATIN CA 80 MG TABLET (FP) PO SCH (21:47)
[2021-07-12] MEDS: hydrALAZINE HCL 25 MG TABLET (FP) PO SCH ×2 (06:04→14:05)
[2021-07-12] MEDS: INSULIN SLIDING SCALE (NOVOLOG) 1 VIAL SQ SCH ×2 (06:11→11:26)
[2021-07-12] MEDS ORDERED: SODIUM CHLORIDE 250 ML IV PRN (07:00)
[2021-07-12] MEDS ORDERED: EPOETIN ALFA-EPBX 10,000 UNIT/ML VIAL IVPUSH ONE (07:00)
[2021-07-12] MEDS ORDERED: PANTOPRAZOLE 40 MG TABLET PO SCH (10:00)
[2021-07-12] MEDS: amLODIPine BESYLATE 10 MG TABLET (FP) PO SCH (10:45)
[2021-07-12] MEDS: TAMSULOSIN HCL 0.4 MG CAP PO SCH (10:45)
[2021-07-12] MEDS: VITAMIN B COMP W-C 1 EA TABLET (NEPHRO-VITE) PO SCH (10:45)
[2021-07-12] MEDS: POLYETHYLENE GLYCOL (HEALTHYLAX) 3350 17 GM PACKET PO SCH (10:57)
[2021-07-12 14:07] VITALS: BP 114/59; PULSE 77; TEMP 97.5
== END 2021-07-12 15:01 | DRG 254 ==
LOC: JER 05:29 → JERBED 11:40 → UNDOADMIN 11:40 → JERBED 06-22 12:09 → J6S 06-22 17:40 → J4W 06-27 18:20
PROVIDERS: ADMIT Internal Medicine
PROC: 30233N1 Transfusion of Nonautologous Red Blood Cells into Peripheral Vein, Percutaneous Approach (ICD-10-PCS; principal; 2021-06-21)
PROC: 5A1D70Z Performance of Urinary Filtration, Intermittent, Less than 6 Hours Per Day (ICD-10-PCS; 2021-06-22)
PROC: 0W3P8ZZ Control Bleeding in Gastrointestinal Tract, Via Natural or Artificial Opening Endoscopic (ICD-10-PCS; 2021-06-28)
PROC: 0DJD8ZZ Inspection of Lower Intestinal Tract, Via Natural or Artificial Opening Endoscopic (ICD-10-PCS; 2021-07-01)
PROC: 0W3P8ZZ Control Bleeding in Gastrointestinal Tract, Via Natural or Artificial Opening Endoscopic (ICD-10-PCS; 2021-07-02)
PROC: 5A1D70Z Performance of Urinary Filtration, Intermittent, Less than 6 Hours Per Day (ICD-10-PCS; 2021-07-03)
PROC: 5A1D70Z Performance of Urinary Filtration, Intermittent, Less than 6 Hours Per Day (ICD-10-PCS; 2021-07-05)
PROC: 5A1D70Z Performance of Urinary Filtration, Intermittent, Less than 6 Hours Per Day (ICD-10-PCS; 2021-07-08)
PROC: 5A1D70Z Performance of Urinary Filtration, Intermittent, Less than 6 Hours Per Day (ICD-10-PCS; 2021-07-10)
PROC: 5A1D70Z Performance of Urinary Filtration, Intermittent, Less than 6 Hours Per Day (ICD-10-PCS; 2021-07-12)
DX: K62.6 Ulcer of anus and rectum (principal); K62.5 Hemorrhage of anus and rectum; K27.4 Chronic or unspecified peptic ulcer, site unspecified, with hemorrhage; E78.5 Hyperlipidemia, unspecified; K21.9 Gastro-esophageal reflux disease without esophagitis; R41.82 Altered mental status, unspecified; N40.0 Benign prostatic hyperplasia without lower urinary tract symptoms; I13.2 Hypertensive heart and chronic kidney disease with heart failure and with stage 5 chronic kidney disease, or end stage renal disease; E87.2 Acidosis; I63.9 Cerebral infarction, unspecified; G93.41 Metabolic encephalopathy; E11.22 Type 2 diabetes mellitus with diabetic chronic kidney disease; N18.6 End stage renal disease; I50.9 Heart failure, unspecified; R82.71 Bacteriuria; K59.00 Constipation, unspecified; K57.30 Diverticulosis of large intestine without perforation or abscess without bleeding; I65.22 Occlusion and stenosis of left carotid artery; N31.9 Neuromuscular dysfunction of bladder, unspecified; F01.50 Vascular dementia, unspecified severity, without behavioral disturbance, psychotic disturbance, mood disturbance, and anxiety; N39.0 Urinary tract infection, site not specified; E43 Unspecified severe protein-calorie malnutrition; Z68.1 Body mass index [BMI] 19.9 or less, adult; D64.9 Anemia, unspecified; K64.8 Other hemorrhoids; E78.1 Pure hyperglyceridemia; K80.20 Calculus of gallbladder without cholecystitis without obstruction; I95.9 Hypotension, unspecified; D35.00 Benign neoplasm of unspecified adrenal gland; R33.9 Retention of urine, unspecified; Z99.2 Dependence on renal dialysis; Z87.11 Personal history of peptic ulcer disease
CPT/HCPCS: 36415; 36430; 36511; 70496-TC; 70498-TC; 70551-TC; 71045-TC-FY; 74174-TC; 76700-TC; 76775-TC; 80048; 80053; 80061; 81003; 82272; 82607; 82728; 82746; 82962; 82977; 83036; 83540; 83550; 83605; 83735; 84080; 84100; 84443; 85025; 85027; 85045; 85610; 85730; 86803; 86850; 86900; 86901; 86922; 87086; 87186; 87340; 88305-TC; 93005; 93010; 93306-TC; 97116-GP; 97162-GP; 99285-25; C9803-CS; J1756; P9038; P9058; Q5106; Q9967; U0003; U0005

== ENCOUNTER 2021-07-15 06:25 | Inpatient (IN) | payer OTHER ==
[2021-07-15 07:23] LABS: BASO % 0.4 % (0-2.0); EOS % 1.2 % (0-4.5); HEMATOCRIT 28.3 % (35.4-49); HEMOGLOBIN 9.5 GM/dL (11.7-16.9); MCH 30.3 pg (25.7-33.7); MCHC 33.4 g/dl (32.0-35.9); MEAN CELL VOLUME 90.5 fl (80-96); MONO % 5.2 % (3.8-10.2); NEUT % 84.2 % (42.8-82.8); PLATELET COUNT 362 10^3/uL (134-434); RBC 3.13 M/mm3 (4.00-5.60); RDW 16.1 % (11.9-15.9); WHITE BLOOD COUNT 7.6 K/mm3 (4.0-10.0)
[2021-07-15 07:31] LABS: VENOUS BASE EXCESS -1.5 mmol/L (-2-2); VENOUS O2 SATURATION 68.2 % (70-80); VENOUS PCO2 49.4 mmHg (38-52); VENOUS PH 7.32 (7.310-7.410)
[2021-07-15 07:39] LABS: INR 0.98 (0.83-1.09); PROTHROMBIN TIME (PATIENT) 11.3 SEC (9.7-13.0)
[2021-07-15 07:42] LABS: ACTIVATED PTT 40.6 SECONDS (25.2-36.5)
[2021-07-15 07:43] LABS: METHADONE, UR NEGATIVE (NEGATIVE); PHENCYCLIDINE,URINE NEGATIVE (NEGATIVE); URINE BENZODIAZEPINES NEGATIVE (NEGATIVE)
[2021-07-15 07:44] LABS: OPIATES, URI NEGATIVE (NEGATIVE); URINE BARBITURATES NEGATIVE (NEGATIVE)
[2021-07-15 07:48] LABS: MAGNESIUM 2.3 mg/dL (1.8-2.4)
[2021-07-15 08:00] LABS: COCAINE, UR NEGATIVE (NEGATIVE); URINE AMPHETAMINES NEGATIVE (NEGATIVE)
[2021-07-15 08:31] LABS: ALBUMIN 2.6 g/dl (3.4-5.0); CALCIUM 8.3 mg/dL (8.5-10.1)
[2021-07-15 08:33] LABS: CREATININE 6.6 mg/dL (0.55-1.3)
[2021-07-15 08:35] LABS: BILIRUBIN,TOTAL 0.3 mg/dL (0.2-1); TOT PROT 6.4 g/dl (6.4-8.2)
[2021-07-15] MEDS ORDERED: PIPERACILLIN/TAZOB 4.5 GM 4.5 GM in DEXTROSE 5%-WATER 100 ML IVPB ONE (08:49)
[2021-07-15 08:50] LABS: EPI CELLS 8 /uL (0-25.1); HYALINE CASTS 1 /uL (0-3.1); PH,URINE 8.5 (5.0-8.0); URINE APPEARANCE TURBID; URINE BACTERIA 122 /uL (0-1359); URINE BILIRUBIN NEGATIVE (NEGATIVE); URINE COLOR YELLOW; URINE GLUCOSE (UA) TRACE (NEGATIVE); URINE KETONE NEGATIVE (NEGATIVE); URINE LEUK ESTERASE 3+ (NEGATIVE); URINE NITRITE NEGATIVE (NEGATIVE); URINE PROTEIN 3+ (NEGATIVE); URINE RBC 106 /uL (0-23.9); URINE UROBILINOGEN 0.2 mg/dL (0.2-1.0); URINE WBC 9528 /uL (0-25.8)
[2021-07-15] MEDS ORDERED: PIPERACILLIN/TAZOB 4.5 GM 4.5 GM/100 ML BAG IVPB ONE (09:01)
[2021-07-15] MEDS ORDERED: EPOETIN ALFA-EPBX 2,000 UNIT/ML VIAL IVPUSH ONE (12:00)
[2021-07-15] MEDS ORDERED: SODIUM CHLORIDE 250 ML IV PRN (12:00)
[2021-07-15] MEDS ORDERED: ASPIRIN 81 MG CHEWABLE TABLETS ONE (12:03)
[2021-07-15] MEDS: ASPIRIN 81 MG CHEWABLE TABLETS PO SCH (12:08)
[2021-07-15] MEDS ORDERED: PIPERACILLIN/TAZOB 2.25 GM 2.25 GM in DEXTROSE 5%-WATER - 50 ML IVPB SCH (18:00)
[2021-07-15] MEDS ORDERED: PIPERACILLIN/TAZOBACTAM 2.25 GM VIAL IVPB ONE (18:15)
[2021-07-15] MEDS ORDERED: DEXTROSE 5%-WATER - 50 ML IVPB ONE (18:16)
[2021-07-15] MEDS: PIPERACILLIN/TAZOB 2.25 GM 2.25 GM in DEXTROSE 5%-WATER - 50 ML IVPB SCH (18:28)
[2021-07-15] MEDS: ATORVASTATIN CA 80 MG TABLET (FP) PO SCH (21:26)
[2021-07-16] MEDS ORDERED: DEXTROSE 5%-WATER - 50 ML IVPB ONE ×3 (02:14→17:01)
[2021-07-16] MEDS ORDERED: PIPERACILLIN/TAZOBACTAM 2.25 GM VIAL IVPB ONE ×3 (02:14→17:01)
[2021-07-16] MEDS: PIPERACILLIN/TAZOB 2.25 GM 2.25 GM in DEXTROSE 5%-WATER - 50 ML IVPB SCH ×3 (02:20→17:16)
[2021-07-16 07:35] LABS: CALCIUM 8.1 mg/dL (8.5-10.1)
[2021-07-16 07:36] LABS: ALBUMIN 2.8 g/dl (3.4-5.0)
[2021-07-16 07:39] LABS: BASO % 1.1 % (0-2.0); CREATININE 4.1 mg/dL (0.55-1.3); EOS % 4.2 % (0-4.5); HEMATOCRIT 28.1 % (35.4-49); HEMOGLOBIN 9.4 GM/dL (11.7-16.9); LYMPH % 7.8 % (8-40); MCHC 33.4 g/dl (32.0-35.9); MEAN CELL VOLUME 89.8 fl (80-96); MONO % 6.2 % (3.8-10.2); NEUT % 80.7 % (42.8-82.8); PHOSPHOROUS 4.4 mg/dL (2.5-4.9); PLATELET COUNT 347 10^3/uL (134-434); RBC 3.12 M/mm3 (4.00-5.60); RDW 15.8 % (11.9-15.9); WHITE BLOOD COUNT 8.5 K/mm3 (4.0-10.0)
[2021-07-16 07:40] LABS: BILIRUBIN,TOTAL 0.7 mg/dL (0.2-1); TOT PROT 6.4 g/dl (6.4-8.2)
[2021-07-16 08:07] LABS: BLOOD UREA NITROGEN 32.5 mg/dL (7-18)
[2021-07-16] MEDS: TAMSULOSIN HCL 0.4 MG CAP PO SCH (10:03)
[2021-07-16] MEDS: ASPIRIN 81 MG CHEWABLE TABLETS PO SCH (10:03)
[2021-07-16] MEDS: ATORVASTATIN CA 80 MG TABLET (FP) PO SCH (21:09)
[2021-07-17] MEDS ORDERED: DEXTROSE 5%-WATER - 50 ML IVPB ONE ×2 (01:03→09:07)
[2021-07-17] MEDS ORDERED: PIPERACILLIN/TAZOBACTAM 2.25 GM VIAL IVPB ONE ×2 (01:03→09:07)
[2021-07-17] MEDS: PIPERACILLIN/TAZOB 2.25 GM 2.25 GM in DEXTROSE 5%-WATER - 50 ML IVPB SCH ×2 (01:10→09:44)
[2021-07-17 07:32] LABS: BASO % 1.4 % (0-2.0); EOS % 5.6 % (0-4.5); HEMATOCRIT 26.8 % (35.4-49); HEMOGLOBIN 9.2 GM/dL (11.7-16.9); LYMPH % 9.5 % (8-40); MCH 30.4 pg (25.7-33.7); MCHC 34.3 g/dl (32.0-35.9); MEAN CELL VOLUME 88.5 fl (80-96); MEAN PLT VOLUME 7.5 fl (7.5-11.1); MONO % 7.3 % (3.8-10.2); NEUT % 76.2 % (42.8-82.8); PLATELET COUNT 333 10^3/uL (134-434); RBC 3.02 M/mm3 (4.00-5.60); RDW 15.8 % (11.9-15.9)
[2021-07-17 07:50] LABS: CALCIUM 7.9 mg/dL (8.5-10.1)
[2021-07-17 07:51] LABS: ALBUMIN 2.6 g/dl (3.4-5.0); BLOOD UREA NITROGEN 43.6 mg/dL (7-18); MAGNESIUM 2.1 mg/dL (1.8-2.4)
[2021-07-17] MEDS ORDERED: SODIUM CHLORIDE 250 ML IV PRN (07:52)
[2021-07-17 07:54] LABS: CREATININE 5.4 mg/dL (0.55-1.3)
[2021-07-17 07:55] LABS: BILIRUBIN,TOTAL 0.4 mg/dL (0.2-1); PHOSPHOROUS 6.4 mg/dL (2.5-4.9); TOT PROT 6.2 g/dl (6.4-8.2)
[2021-07-17] MEDS ORDERED: EPOETIN ALFA-EPBX 2,000 UNIT/ML VIAL SQ ONE (08:00)
[2021-07-17] MEDS: amLODIPine BESYLATE 10 MG TABLET (FP) PO SCH (09:44)
[2021-07-17] MEDS: ASPIRIN 81 MG CHEWABLE TABLETS PO SCH (09:44)
[2021-07-17] MEDS: TAMSULOSIN HCL 0.4 MG CAP PO SCH (09:44)
[2021-07-17] MEDS: ATORVASTATIN CA 80 MG TABLET (FP) PO SCH (21:11)
[2021-07-17 23:41] VITALS: BMI 19.0
[2021-07-18 07:20] LABS: BASO % 1.3 % (0-2.0); EOS % 3.9 % (0-4.5); HEMATOCRIT 27.5 % (35.4-49); HEMOGLOBIN 9.1 GM/dL (11.7-16.9); LYMPH % 11.9 % (8-40); MCH 29.6 pg (25.7-33.7); MCHC 33.2 g/dl (32.0-35.9); MEAN CELL VOLUME 89.2 fl (80-96); MEAN PLT VOLUME 7.9 fl (7.5-11.1); MONO % 8.4 % (3.8-10.2); NEUT % 74.5 % (42.8-82.8); PLATELET COUNT 345 10^3/uL (134-434); RBC 3.08 M/mm3 (4.00-5.60); RDW 15.8 % (11.9-15.9); WHITE BLOOD COUNT 8.6 K/mm3 (4.0-10.0)
[2021-07-18 07:46] LABS: ALBUMIN 2.5 g/dl (3.4-5.0); CALCIUM 7.9 mg/dL (8.5-10.1)
[2021-07-18 07:47] LABS: BLOOD UREA NITROGEN 37.6 mg/dL (7-18)
[2021-07-18 07:49] LABS: PHOSPHOROUS 4.6 mg/dL (2.5-4.9)
[2021-07-18 07:51] LABS: BILIRUBIN,TOTAL 0.3 mg/dL (0.2-1); TOT PROT 6.5 g/dl (6.4-8.2)
[2021-07-18 08:11] VITALS: BP 152/74; PULSE 67; TEMP 98.1
[2021-07-18] MEDS: TAMSULOSIN HCL 0.4 MG CAP PO SCH (08:51)
[2021-07-18] MEDS: amLODIPine BESYLATE 10 MG TABLET (FP) PO SCH (09:34)
[2021-07-18] MEDS: ASPIRIN 81 MG CHEWABLE TABLETS PO SCH (09:34)
== END 2021-07-18 15:51 | DRG 52 ==
LOC: JER 06:25 → JERBED 08:44 → J4W 16:38
PROVIDERS: ADMIT Internal Medicine
PROC: 5A1D70Z Performance of Urinary Filtration, Intermittent, Less than 6 Hours Per Day (ICD-10-PCS; principal; 2021-07-15)
PROC: 5A1D70Z Performance of Urinary Filtration, Intermittent, Less than 6 Hours Per Day (ICD-10-PCS; 2021-07-17)
DX: G93.41 Metabolic encephalopathy (principal); N39.0 Urinary tract infection, site not specified; I13.2 Hypertensive heart and chronic kidney disease with heart failure and with stage 5 chronic kidney disease, or end stage renal disease; N18.6 End stage renal disease; K21.9 Gastro-esophageal reflux disease without esophagitis; I50.9 Heart failure, unspecified; E11.22 Type 2 diabetes mellitus with diabetic chronic kidney disease; E78.5 Hyperlipidemia, unspecified; R41.82 Altered mental status, unspecified; F01.50 Vascular dementia, unspecified severity, without behavioral disturbance, psychotic disturbance, mood disturbance, and anxiety; E43 Unspecified severe protein-calorie malnutrition; Z68.1 Body mass index [BMI] 19.9 or less, adult; N40.0 Benign prostatic hyperplasia without lower urinary tract symptoms; R94.31 Abnormal electrocardiogram [ECG] [EKG]; E87.2 Acidosis; I69.30 Unspecified sequelae of cerebral infarction; D64.9 Anemia, unspecified; I95.9 Hypotension, unspecified; E03.9 Hypothyroidism, unspecified; K59.00 Constipation, unspecified; D35.00 Benign neoplasm of unspecified adrenal gland; E88.81 Metabolic syndrome and other insulin resistance; Z99.2 Dependence on renal dialysis
CPT/HCPCS: 36415; 70450-TC; 71045-TC-FY; 80053; 80061; 80307; 81003; 82140; 82803; 82962; 83036; 83605; 83690; 83735; 84100; 84439; 84443; 85025; 85610; 85651; 85730; 87040; 87077; 87086; 87186; 93005; 93010; 97161-GP; 99285-25; C9803-CS; Q5106; U0003; U0005

== ENCOUNTER 2021-09-15 11:08 | Inpatient (IN) | payer OTHER ==
[2021-09-15 13:01] LABS: VENOUS BASE EXCESS -3.2 mmol/L (-2-2); VENOUS O2 SATURATION 92.2 % (70-80); VENOUS PCO2 31.2 mmHg (38-52); VENOUS PH 7.431 (7.310-7.410)
[2021-09-15 13:03] LABS: BASO % 0.9 % (0-2.0); EOS % 0.9 % (0-4.5); HEMATOCRIT 30.9 % (35.4-49); HEMOGLOBIN 10.6 GM/dL (11.7-16.9); LYMPH % 7.8 % (8-40); MCH 28.6 pg (25.7-33.7); MCHC 34.4 g/dl (32.0-35.9); MEAN CELL VOLUME 83.2 fl (80-96); MEAN PLT VOLUME 7.6 fl (7.5-11.1); MONO % 11.5 % (3.8-10.2); NEUT % 78.9 % (42.8-82.8); PLATELET COUNT 301 10^3/uL (134-434); RBC 3.71 M/mm3 (4.00-5.60); RDW 16.5 % (11.9-15.9); WHITE BLOOD COUNT 6.2 K/mm3 (4.0-10.0)
[2021-09-15 13:30] LABS: CALCIUM 8.4 mg/dL (8.5-10.1)
[2021-09-15 13:31] LABS: ALBUMIN 2.7 g/dl (3.4-5.0); BLOOD UREA NITROGEN 70.5 mg/dL (7-18)
[2021-09-15 13:34] LABS: CREATININE 5.5 mg/dL (0.55-1.3)
[2021-09-15 13:36] LABS: BILIRUBIN,TOTAL 0.3 mg/dL (0.2-1); TOT PROT 7.1 g/dl (6.4-8.2)
[2021-09-15 13:39] LABS: N-TERMINAL BNP 19846.5 pg/ml (5-125)
[2021-09-16] MEDS: INSULIN SLIDING SCALE (NOVOLOG) 1 VIAL SQ SCH ×5 (00:12→21:18)
[2021-09-16] MEDS ORDERED: ACETAMINOPHEN 325 MG TABLET (FP) PO PRN (04:20)
[2021-09-16] MEDS ORDERED: POLYETHYLENE GLYCOL (HEALTHYLAX) 3350 17 GM PACKET PO PRN (04:20)
[2021-09-16] MEDS: hydrALAZINE HCL 50 MG TABLET (FP) PO SCH ×3 (05:32→21:17)
[2021-09-16] MEDS: CALCIUM ACETATE 667 MG CAPSULE (FP) PO SCH ×3 (09:04→17:16)
[2021-09-16 10:02] LABS: BASO % 0.6 % (0-2.0); EOS % 0.8 % (0-4.5); HEMATOCRIT 28.1 % (35.4-49); HEMOGLOBIN 9.5 GM/dL (11.7-16.9); LYMPH % 8.7 % (8-40); MCH 28.4 pg (25.7-33.7); MCHC 33.9 g/dl (32.0-35.9); MEAN CELL VOLUME 83.9 fl (80-96); MEAN PLT VOLUME 7.4 fl (7.5-11.1); MONO % 8.7 % (3.8-10.2); NEUT % 81.2 % (42.8-82.8); PLATELET COUNT 317 10^3/uL (134-434); RBC 3.35 M/mm3 (4.00-5.60); RDW 16.2 % (11.9-15.9); WHITE BLOOD COUNT 6.1 K/mm3 (4.0-10.0)
[2021-09-16 10:09] LABS: INR 0.99 (0.83-1.09); PROTHROMBIN TIME (PATIENT) 11.4 SEC (9.7-13.0)
[2021-09-16 10:11] LABS: ACTIVATED PTT 32.4 SECONDS (25.2-36.5)
[2021-09-16 10:22] LABS: BLOOD UREA NITROGEN 84.1 mg/dL (7-18); CALCIUM 8.1 mg/dL (8.5-10.1); MAGNESIUM 2.2 mg/dL (1.8-2.4)
[2021-09-16 10:25] LABS: CREATININE 6.3 mg/dL (0.55-1.3); PHOSPHOROUS 5.1 mg/dL (2.5-4.9)
[2021-09-16] MEDS ORDERED: SODIUM CHLORIDE 250 ML IV PRN (10:55)
[2021-09-16] MEDS: VITAMIN B COMP W-C 1 EA TABLET (NEPHRO-VITE) PO SCH (11:03)
[2021-09-16] MEDS: FINASTERIDE 5 MG TABLET (FP) PO SCH (11:04)
[2021-09-16] MEDS: ASPIRIN 81 MG CHEWABLE TABLETS PO SCH (11:04)
[2021-09-16] MEDS: TAMSULOSIN HCL 0.4 MG CAP PO SCH (11:04)
[2021-09-16] MEDS: ASCORBIC ACID 500 MG TABLET (FP) PO SCH (11:04)
[2021-09-16] MEDS: HEPARIN NA (PORCINE) 5,000 UNITS/ML 1ML VIAL SQ SCH ×3 (11:05→21:17)
[2021-09-16] MEDS: CYANOCOBALAMIN (VITAMIN B-12) 100 MCG TABLET PO SCH (11:06)
[2021-09-16 14:30] VITALS: BMI 17.5
[2021-09-16] MEDS: amLODIPine BESYLATE 10 MG TABLET (FP) PO SCH ×2 (15:11→15:16)
[2021-09-16] MEDS: ATORVASTATIN CA 80 MG TABLET (FP) PO SCH (21:17)
[2021-09-16] MEDS: SENNOSIDES 8.8 MG/5 ML BULK BOTTLE PO SCH (22:26)
[2021-09-17] MEDS: HEPARIN NA (PORCINE) 5,000 UNITS/ML 1ML VIAL SQ SCH ×3 (05:49→21:10)
[2021-09-17] MEDS: hydrALAZINE HCL 50 MG TABLET (FP) PO SCH ×3 (05:51→21:01)
[2021-09-17] MEDS: INSULIN SLIDING SCALE (NOVOLOG) 1 VIAL SQ SCH ×4 (06:02→21:02)
[2021-09-17] MEDS: TAMSULOSIN HCL 0.4 MG CAP PO SCH (08:15)
[2021-09-17] MEDS: CALCIUM ACETATE 667 MG CAPSULE (FP) PO SCH ×3 (08:15→17:36)
[2021-09-17] MEDS: ASPIRIN 81 MG CHEWABLE TABLETS PO SCH (10:10)
[2021-09-17] MEDS: amLODIPine BESYLATE 10 MG TABLET (FP) PO SCH (10:10)
[2021-09-17] MEDS: FINASTERIDE 5 MG TABLET (FP) PO SCH (10:10)
[2021-09-17] MEDS: ASCORBIC ACID 500 MG TABLET (FP) PO SCH (10:11)
[2021-09-17] MEDS: VITAMIN B COMP W-C 1 EA TABLET (NEPHRO-VITE) PO SCH (10:11)
[2021-09-17] MEDS: CYANOCOBALAMIN (VITAMIN B-12) 100 MCG TABLET PO SCH (11:53)
[2021-09-17] MEDS: ATORVASTATIN CA 80 MG TABLET (FP) PO SCH (21:01)
[2021-09-17] MEDS: SENNOSIDES 8.8 MG/5 ML BULK BOTTLE PO SCH (21:53)
[2021-09-17 21:55] VITALS: BP 127/58; PULSE 70; TEMP 98.6
[2021-09-18] MEDS ORDERED: ERGOCALCIFEROL (VIT D2) 50,000 UNIT (1.25 MG) CAPSULE PO SCH (10:00)
== END 2021-09-17 22:00 | DRG 861 ==
LOC: JER 11:08 → JERBED 17:29 → J5S 23:55
PROVIDERS: ADMIT Internal Medicine; ATTEND Internal Medicine
PROC: 5A1D70Z Performance of Urinary Filtration, Intermittent, Less than 6 Hours Per Day (ICD-10-PCS; principal; 2021-09-16)
DX: R41.82 Altered mental status, unspecified (principal); I13.2 Hypertensive heart and chronic kidney disease with heart failure and with stage 5 chronic kidney disease, or end stage renal disease; D64.9 Anemia, unspecified; E11.9 Type 2 diabetes mellitus without complications; E78.5 Hyperlipidemia, unspecified; N18.6 End stage renal disease; K21.9 Gastro-esophageal reflux disease without esophagitis; N40.0 Benign prostatic hyperplasia without lower urinary tract symptoms; I50.9 Heart failure, unspecified
CPT/HCPCS: 36415; 70450-TC; 71045-TC-FY; 80048; 80053; 82803; 82962; 83735; 83880; 84100; 84484; 85025; 85610; 85730; 86803; 87040; 87340; 93005; 93010; 99285-25; C9803-CS; J1644; U0003; U0005

== ENCOUNTER 2023-05-09 03:22 | Inpatient (IN) | payer BC, OTHER ==
[2023-05-09 06:02] LABS: BASO % 0.7 % (0-2.0); EOS % 1.2 % (0-4.5); HEMATOCRIT 22.2 % (35.4-49); INR 1.26 (0.83-1.09); LYMPH % 4.5 % (8-40); MCH 28.2 pg (25.7-33.7); MCHC 30.9 g/dl (32.0-35.9); MEAN CELL VOLUME 91.2 fl (80-96); MEAN PLT VOLUME 7.5 fl (7.5-11.1); MONO % 6.7 % (3.8-10.2); NEUT % 86.9 % (42.8-82.8); PLATELET COUNT 486 10^3/uL (134-434); PROTHROMBIN TIME (PATIENT) 14.6 SEC (9.7-13.0); RBC 2.43 M/mm3 (4.00-5.60); RDW 17.2 % (11.9-15.9); WHITE BLOOD COUNT 13.6 K/mm3 (4.0-10.0)
[2023-05-09] MEDS: SODIUM CHLORIDE 1,769 ML IV ONE (06:04)
[2023-05-09] MEDS: SODIUM CHLORIDE 0.9% 500 ML INFUS.BAG IV ONE (06:04)
[2023-05-09 06:05] LABS: ACTIVATED PTT 33.9 SECONDS (25.2-36.5)
[2023-05-09 06:11] LABS: POTASSIUM 3.4 mmol/L (3.5-5.1)
[2023-05-09 06:13] LABS: ALBUMIN 1.8 g/dl (3.4-5.0); BLOOD UREA NITROGEN 32.9 mg/dL (7-18); HEMOGLOBIN 6.9 GM/dL (11.7-16.9)
[2023-05-09 06:14] LABS: VENOUS BASE EXCESS 5.4 mmol/L (-2-2); VENOUS O2 SATURATION 43.3 % (70-80); VENOUS PCO2 49.6 mmHg (38-52); VENOUS PH 7.408 (7.310-7.410)
[2023-05-09 06:16] LABS: CREATININE 3.2 mg/dL (0.55-1.3)
[2023-05-09 06:18] LABS: BILIRUBIN,TOTAL 0.4 mg/dL (0.2-1); TOT PROT 6.6 g/dl (6.4-8.2)
[2023-05-09 08:06] LABS: EPI CELLS >36 /uL (0-25.1); HYALINE CASTS 3 /uL (0-3.1); PH,URINE 7.5 (5.0-8.0); URINE APPEARANCE TURBID; URINE BACTERIA 75 /uL (0-1359); URINE BILIRUBIN NEGATIVE (NEGATIVE); URINE COLOR YELLOW; URINE GLUCOSE (UA) 1+ (NEGATIVE); URINE KETONE NEGATIVE (NEGATIVE); URINE LEUK ESTERASE 2+ (NEGATIVE); URINE NITRITE NEGATIVE (NEGATIVE); URINE PROTEIN 4+ (NEGATIVE); URINE UROBILINOGEN 0.2 mg/dL (0.2-1.0); URINE WBC 2242 /uL (0-25.8)
[2023-05-09] MEDS ORDERED: CEFTRIAXONE 1 GM/50 ML BAG ONE (08:26)
[2023-05-09] MEDS: CEFTRIAXONE 1 GM in DEXTROSE 5%-WATER - 100 ML IVPB ONE (08:28)
[2023-05-09 08:30] LABS: URINE CRYSTALS MODERATE /hpf; YEAST NONE SEEN (NEGATIVE)
[2023-05-09] MEDS ORDERED: COLLAGENASE CLOSTRIDIUM HIST. 30 GRAMS TUBE TP SCH (10:00)
[2023-05-09] MEDS: FINASTERIDE 5 MG TABLET (FP) PO SCH (10:58)
[2023-05-09] MEDS ORDERED: amLODIPine BESYLATE 10 MG TABLET (FP) ONE (11:00)
[2023-05-09] MEDS: POLYETHYLENE GLYCOL (HEALTHYLAX) 3350 17 GM PACKET PO SCH (11:00)
[2023-05-09] MEDS ORDERED: POLYETHYLENE GLYCOL (HEALTHYLAX) 3350 17 GM PACKET ONE (11:00)
[2023-05-09] MEDS ORDERED: PANTOPRAZOLE 40 MG TABLET PO ONE (11:00)
[2023-05-09] MEDS: amLODIPine BESYLATE 10 MG TABLET (FP) PO SCH (11:00)
[2023-05-09] MEDS ORDERED: METOPROLOL TARTRATE 50 MG TABLET (FP) ONE (11:00)
[2023-05-09] MEDS: PANTOPRAZOLE 40 MG TABLET PO SCH (11:01)
[2023-05-09] MEDS: CALCIUM ACETATE 667 MG CAPSULE (FP) PO SCH (11:01)
[2023-05-09] MEDS: INSULIN ASPART SLIDING SCALE (NOVOLOG) 1 VIAL SQ SCH (11:23)
[2023-05-09] MEDS ORDERED: hydrALAZINE HCL 50 MG TABLET (FP) ONE (13:27)
[2023-05-09] MEDS: hydrALAZINE HCL 25 MG TABLET (FP) PO SCH (13:34)
[2023-05-09] MEDS: DAPTOMYCIN 250 MG in SODIUM CHLORIDE 50 ML IVPB ONE (17:53)
[2023-05-10] MEDS: ATORVASTATIN CA 40 MG TABLET (FP) PO SCH (00:16)
[2023-05-10] MEDS ORDERED: ATORVASTATIN CA 40 MG TABLET (FP) ONE (00:17)
[2023-05-10] MEDS ORDERED: hydrALAZINE HCL 50 MG TABLET (FP) ONE (05:31)
[2023-05-10] MEDS: hydrALAZINE HCL 50 MG TABLET (FP) PO SCH (05:36)
[2023-05-10 06:25] LABS: HEMATOCRIT 21.3 % (35.4-49); MCH 28.1 pg (25.7-33.7); MCHC 31.2 g/dl (32.0-35.9); MEAN CELL VOLUME 89.9 fl (80-96); MEAN PLT VOLUME 7.5 fl (7.5-11.1); PLATELET COUNT 457 10^3/uL (134-434); RBC 2.37 M/mm3 (4.00-5.60); RDW 17.8 % (11.9-15.9); WHITE BLOOD COUNT 12.9 K/mm3 (4.0-10.0)
[2023-05-10 06:37] LABS: POTASSIUM 3.5 mmol/L (3.5-5.1)
[2023-05-10 06:41] LABS: ALBUMIN 1.9 g/dl (3.4-5.0); CALCIUM 8.4 mg/dL (8.5-10.1)
[2023-05-10 06:42] LABS: BLOOD UREA NITROGEN 46.2 mg/dL (7-18)
[2023-05-10 06:44] LABS: CREATININE 4.5 mg/dL (0.55-1.3)
[2023-05-10 06:46] LABS: BILIRUBIN,TOTAL 0.4 mg/dL (0.2-1); TOT PROT 6.4 g/dl (6.4-8.2)
[2023-05-10 06:52] LABS: HEMOGLOBIN 6.7 GM/dL (11.7-16.9)
[2023-05-10] MEDS ORDERED: ACETAMINOPHEN 325 MG TABLET (FP) ONE (07:35)
[2023-05-10] MEDS: ACETAMINOPHEN 325 MG TABLET (FP) PO PRN (07:50)
[2023-05-10] MEDS ORDERED: NAPH,MB-DB/K PH,MBDB POWDER PACKET ONE (08:15)
[2023-05-10] MEDS ORDERED: TAMSULOSIN HCL 0.4 MG CAP ONE (08:16)
[2023-05-10] MEDS: TAMSULOSIN HCL 0.4 MG CAP PO SCH (08:32)
[2023-05-10] MEDS: CEFTRIAXONE 1 GM in DEXTROSE 5%-WATER - 50 ML IVPB SCH (12:17)
[2023-05-10] MEDS: IRON SUCROSE INJECTION 100 MG in SODIUM CHLORIDE 95 ML IVPB ONE (19:35)
[2023-05-10] MEDS: VANCOMYCIN ORAL SOLUTION 125 MG/2.5 ML PO SCH (21:45)
[2023-05-11 09:37] LABS: BASO % 0.7 % (0-2.0); EOS % 1.2 % (0-4.5); HEMATOCRIT 26.2 % (35.4-49); HEMOGLOBIN 8.3 GM/dL (11.7-16.9); MCH 28.2 pg (25.7-33.7); MCHC 31.9 g/dl (32.0-35.9); MEAN CELL VOLUME 88.4 fl (80-96); MEAN PLT VOLUME 7.2 fl (7.5-11.1); MONO % 5.7 % (3.8-10.2); NEUT % 88.4 % (42.8-82.8); PLATELET COUNT 457 10^3/uL (134-434); RBC 2.96 M/mm3 (4.00-5.60); WHITE BLOOD COUNT 12.4 K/mm3 (4.0-10.0)
[2023-05-11] MEDS: PIPERACILLIN/TAZOB 4.5 GM 4.5 GM in DEXTROSE 5%-WATER 100 ML IVPB ONE (10:09)
[2023-05-11 10:22] LABS: ERYTHROCYTE SEDIMENTATION RATE 119 mm/hr (0-20)
[2023-05-11] MEDS: VANCOMYCIN/WATER FOR INJ (PEG) 1,000 MG/200 ML BAG IVPB SCH (11:44)
[2023-05-11] MEDS ORDERED: SODIUM CHLORIDE 250 ML IV PRN (14:00)
[2023-05-11] MEDS: EPOETIN ALFA-EPBX 10,000 UNIT/ML VIAL SQ ONE (15:25)
[2023-05-11 16:16] LABS: CALCIUM 8.3 mg/dL (8.5-10.1); CREATININE 5.7 mg/dL (0.55-1.3); POTASSIUM 3.6 mmol/L (3.5-5.1)
[2023-05-11] MEDS: AMINO ACIDS/PROTEIN HYDROLYS 30 ML LIQUID.PKT PO SCH (18:01)
[2023-05-11] MEDS: PIPERACILLIN/TAZOB 2.25 GM 2.25 GM in DEXTROSE 5%-WATER - 50 ML IVPB SCH (18:01)
[2023-05-12] MEDS: VITAMIN B COMP W-C 1 EA TABLET (NEPHRO-VITE) PO SCH (10:47)
[2023-05-12] MEDS: LACTOBACILLUS ACIDOPHILUS 1 TABLET PO SCH (10:47)
[2023-05-12] MEDS ORDERED: INSULIN (NOVOLOG) ASPART 100 UNITS/ML 10ML VIAL ONE (12:00)
[2023-05-12] MEDS ORDERED: EPOETIN ALFA-EPBX 10,000 UNIT/ML VIAL SQ ONE (15:45)
[2023-05-12] MEDS ORDERED: SODIUM CHLORIDE 250 ML IV PRN (19:14)
[2023-05-13 08:29] LABS: BASO % 0.8 % (0-2.0); EOS % 2.8 % (0-4.5); HEMATOCRIT 26.1 % (35.4-49); HEMOGLOBIN 8.6 GM/dL (11.7-16.9); LYMPH % 4.3 % (8-40); MCH 29.2 pg (25.7-33.7); MEAN CELL VOLUME 88.7 fl (80-96); MEAN PLT VOLUME 7.3 fl (7.5-11.1); MONO % 7.1 % (3.8-10.2); PLATELET COUNT 432 10^3/uL (134-434); RBC 2.94 M/mm3 (4.00-5.60); RDW 16.3 % (11.9-15.9); WHITE BLOOD COUNT 10.4 K/mm3 (4.0-10.0)
[2023-05-13 08:47] LABS: CHLORIDE 102 mmol/L (98-107); SODIUM 137 mmol/L (136-145)
[2023-05-13 08:51] LABS: ALBUMIN 1.8 g/dl (3.4-5.0); BLOOD UREA NITROGEN 42.1 mg/dL (7-18); CALCIUM 8.2 mg/dL (8.5-10.1); CO2 25 mmol/L (21-32); GLUCOSE,RANDOM 113 mg/dL (74-106)
[2023-05-13 08:54] LABS: CREATININE 4.7 mg/dL (0.55-1.3); SGOT/AST 14 U/L (15-37); SGPT/ALT 20 U/L (13-61)
[2023-05-13 08:56] LABS: BILIRUBIN,TOTAL 0.4 mg/dL (0.2-1); TOT PROT 6.5 g/dl (6.4-8.2)
[2023-05-13 09:03] LABS: ALK PHOS 159 U/L (45-117); ANION GAP 10 mmol/L (4-13); POTASSIUM 2.6 mmol/L (3.5-5.1)
[2023-05-13] MEDS: KCL 10 MEQ IVPB 10 MEQ/100 ML INFUS.BAG IVPB SCH (10:22)
[2023-05-13] MEDS: POTASSIUM CHLORIDE ORAL LIQUID 20 MEQ/15 ML PO SCH (10:22)
[2023-05-13 10:52] LABS: MAGNESIUM 2.3 mg/dL (1.8-2.4)
[2023-05-13] MEDS: EPOETIN ALFA-EPBX 10,000 UNIT/ML VIAL SQ ONE (18:03)
[2023-05-14 13:06] LABS: HEMATOCRIT 26.9 % (35.4-49); HEMOGLOBIN 8.4 GM/dL (11.7-16.9); MCHC 31.2 g/dl (32.0-35.9); MEAN CELL VOLUME 89.6 fl (80-96); MEAN PLT VOLUME 7.4 fl (7.5-11.1); PLATELET COUNT 467 10^3/uL (134-434); RDW 16.5 % (11.9-15.9); WHITE BLOOD COUNT 13.3 K/mm3 (4.0-10.0)
[2023-05-14 13:54] LABS: POTASSIUM 3.1 mmol/L (3.5-5.1)
[2023-05-14 13:58] LABS: BLOOD UREA NITROGEN 25.5 mg/dL (7-18); CALCIUM 8.4 mg/dL (8.5-10.1)
[2023-05-14 14:01] LABS: CREATININE 3.3 mg/dL (0.55-1.3)
[2023-05-14] MEDS ORDERED: INSULIN (NOVOLOG) ASPART 100 UNITS/ML 10ML VIAL ONE (21:15)
[2023-05-14] MEDS: POTASSIUM CHLORIDE ORAL LIQUID 20 MEQ/15 ML PO ONE (23:47)
[2023-05-15] MEDS ORDERED: SODIUM CHLORIDE 250 ML IV PRN (07:49)
[2023-05-15 09:03] LABS: EOS % 3.8 % (0-4.5); HEMATOCRIT 27.2 % (35.4-49); HEMOGLOBIN 8.6 GM/dL (11.7-16.9); LYMPH % 5.9 % (8-40); MCH 28.5 pg (25.7-33.7); MCHC 31.6 g/dl (32.0-35.9); MEAN CELL VOLUME 90.2 fl (80-96); MEAN PLT VOLUME 7.4 fl (7.5-11.1); NEUT % 82.3 % (42.8-82.8); PLATELET COUNT 434 10^3/uL (134-434); RBC 3.02 M/mm3 (4.00-5.60); RDW 16.6 % (11.9-15.9); WHITE BLOOD COUNT 10.4 K/mm3 (4.0-10.0)
[2023-05-15 09:23] LABS: POTASSIUM 3.2 mmol/L (3.5-5.1)
[2023-05-15 09:42] LABS: CALCIUM 8.7 mg/dL (8.5-10.1)
[2023-05-15 09:43] LABS: ALBUMIN 1.8 g/dl (3.4-5.0); BLOOD UREA NITROGEN 32.8 mg/dL (7-18)
[2023-05-15 09:45] LABS: CREATININE 4.4 mg/dL (0.55-1.3)
[2023-05-15 09:46] LABS: BILIRUBIN,TOTAL 0.5 mg/dL (0.2-1)
[2023-05-15 09:51] LABS: TOT PROT 6.3 g/dl (6.4-8.2)
[2023-05-15] MEDS: EPOETIN ALFA-EPBX 10,000 UNIT/ML VIAL IVPUSH ONE (15:27)
[2023-05-15] MEDS ORDERED: INSULIN (NOVOLOG) ASPART 100 UNITS/ML 10ML VIAL ONE (18:32)
[2023-05-15 20:37] VITALS: BMI 21.1
[2023-05-16] MEDS: ZINC SULFATE 220 MG CAPSULE (FP) PO SCH (10:43)
[2023-05-16] MEDS ORDERED: INSULIN (NOVOLOG) ASPART 100 UNITS/ML 10ML VIAL ONE (11:57)
[2023-05-17] MEDS: VANCOMYCIN ORAL SOLUTION 125 MG/2.5 ML PO SCH (00:43)
[2023-05-17] MEDS ORDERED: ACETAMINOPHEN 325 MG TABLET (FP) PO PRN (09:54)
[2023-05-17] MEDS ORDERED: ACETAMINOPHEN 500 MG TABLET (FP) PO PRN (09:55)
[2023-05-17] MEDS ORDERED: ACETAMINOPHEN 1000 MG/100 ML BAG IVPB ONE (10:00)
[2023-05-17] MEDS ORDERED: HYDROmorphone HCl 2 MG/ML VIAL IVPB ONE (10:00)
[2023-05-17] MEDS ORDERED: PANTOPRAZOLE SODIUM 40 MG VIAL IVPUSH ONE (10:15)
[2023-05-17] MEDS ORDERED: INSULIN (NOVOLOG) ASPART 100 UNITS/ML 10ML VIAL ONE (12:08)
[2023-05-17 12:30] LABS: HEMATOCRIT 26.4 % (35.4-49); HEMOGLOBIN 8.7 GM/dL (11.7-16.9); MCH 29.3 pg (25.7-33.7); MCHC 32.9 g/dl (32.0-35.9); MEAN CELL VOLUME 89.2 fl (80-96); MEAN PLT VOLUME 7.3 fl (7.5-11.1); PLATELET COUNT 416 10^3/uL (134-434); RBC 2.96 M/mm3 (4.00-5.60); WHITE BLOOD COUNT 9.9 K/mm3 (4.0-10.0)
[2023-05-17 12:47] LABS: CHLORIDE 97 mmol/L (98-107); SODIUM 134 mmol/L (136-145)
[2023-05-17 12:50] LABS: ALBUMIN 1.7 g/dl (3.4-5.0); CALCIUM 7.9 mg/dL (8.5-10.1); CO2 26 mmol/L (21-32); GLUCOSE,RANDOM 222 mg/dL (74-106); MAGNESIUM 1.9 mg/dL (1.8-2.4)
[2023-05-17 12:51] LABS: BLOOD UREA NITROGEN 39.7 mg/dL (7-18)
[2023-05-17 12:53] LABS: CREATININE 4.8 mg/dL (0.55-1.3)
[2023-05-17 12:54] LABS: SGOT/AST 8 U/L (15-37); SGPT/ALT 12 U/L (13-61)
[2023-05-17 12:55] LABS: BILIRUBIN,TOTAL 0.4 mg/dL (0.2-1); TOT PROT 6.2 g/dl (6.4-8.2)
[2023-05-17 12:56] LABS: ALK PHOS 117 U/L (45-117)
[2023-05-17 13:03] LABS: ANION GAP 11 mmol/L (4-13); POTASSIUM 2.7 mmol/L (3.5-5.1)
[2023-05-17] MEDS: KCL 10 MEQ IVPB 10 MEQ/100 ML INFUS.BAG IVPB SCH (13:52)
[2023-05-17] MEDS: POTASSIUM CHLORIDE ORAL LIQUID 20 MEQ/15 ML PO SCH (13:52)
[2023-05-17] MEDS ORDERED: SODIUM CHLORIDE 250 ML IV PRN (14:36)
[2023-05-18 07:54] LABS: POTASSIUM 3.6 mmol/L (3.5-5.1)
[2023-05-18 08:01] LABS: CALCIUM 8.2 mg/dL (8.5-10.1)
[2023-05-18 08:05] LABS: CREATININE 5.6 mg/dL (0.55-1.3)
[2023-05-18 08:06] LABS: BASO % 0.8 % (0-2.0); EOS % 3.2 % (0-4.5); HEMATOCRIT 28.4 % (35.4-49); HEMOGLOBIN 8.9 GM/dL (11.7-16.9); LYMPH % 5.7 % (8-40); MCH 28.4 pg (25.7-33.7); MCHC 31.4 g/dl (32.0-35.9); MEAN CELL VOLUME 90.4 fl (80-96); MEAN PLT VOLUME 7.5 fl (7.5-11.1); MONO % 6.2 % (3.8-10.2); NEUT % 84.1 % (42.8-82.8); PLATELET COUNT 434 10^3/uL (134-434); RBC 3.14 M/mm3 (4.00-5.60); RDW 16.7 % (11.9-15.9); WHITE BLOOD COUNT 11.3 K/mm3 (4.0-10.0)
[2023-05-18] MEDS ORDERED: REGADENOSON 0.4 MG/5 ML PRE-FILLED SYRINGE IVPUSH ONE (11:40)
[2023-05-18] MEDS: REGADENOSON 0.4 MG/5 ML PRE-FILLED SYRINGE IVPUSH ONE (12:40)
[2023-05-18] MEDS: EPOETIN ALFA-EPBX 10,000 UNIT/ML VIAL SQ ONE (19:47)
[2023-05-18] MEDS ORDERED: INSULIN (NOVOLOG) ASPART 100 UNITS/ML 10ML VIAL ONE (21:36)
[2023-05-19] MEDS ORDERED: INSULIN (NOVOLOG) ASPART 100 UNITS/ML 10ML VIAL ONE ×3 (11:35→20:54)
[2023-05-20] MEDS ORDERED: INSULIN (NOVOLOG) ASPART 100 UNITS/ML 10ML VIAL ONE (06:11)
[2023-05-20] MEDS ORDERED: SODIUM CHLORIDE 250 ML IV PRN (10:00)
[2023-05-20] MEDS: EPOETIN ALFA-EPBX 10,000 UNIT/ML VIAL SQ ONE (12:09)
[2023-05-20 16:49] LABS: BASO % 0.6 % (0-2.0); EOS % 1.8 % (0-4.5); HEMATOCRIT 28.5 % (35.4-49); HEMOGLOBIN 9.1 GM/dL (11.7-16.9); LYMPH % 3.6 % (8-40); MCH 28.5 pg (25.7-33.7); MEAN PLT VOLUME 7.4 fl (7.5-11.1); MONO % 7.4 % (3.8-10.2); NEUT % 86.6 % (42.8-82.8); PLATELET COUNT 409 10^3/uL (134-434); RDW 17.2 % (11.9-15.9); WHITE BLOOD COUNT 12.5 K/mm3 (4.0-10.0)
[2023-05-20 16:53] LABS: INR 1.31 (0.83-1.09); PROTHROMBIN TIME (PATIENT) 15.2 SEC (9.7-13.0)
[2023-05-20 17:09] LABS: CALCIUM 8.7 mg/dL (8.5-10.1)
[2023-05-20 17:13] LABS: CREATININE 2.4 mg/dL (0.55-1.3)
[2023-05-20 17:14] LABS: BILIRUBIN,TOTAL 0.3 mg/dL (0.2-1)
[2023-05-20 17:15] LABS: TOT PROT 6.6 g/dl (6.4-8.2)
[2023-05-20 17:29] LABS: BLOOD UREA NITROGEN 17.3 mg/dL (7-18)
[2023-05-21] MEDS: KCL 10 MEQ IVPB 10 MEQ/100 ML INFUS.BAG IVPB SCH (05:06)
[2023-05-21] MEDS ORDERED: LIDOCAINE HCL 1%, 10 MG/ML (20ML VIAL) ONE (11:17)
[2023-05-21] MEDS ORDERED: HEPARIN NA (PORCINE) 5,000 UNITS/ML 1ML VIAL ONE ×2 (11:18→12:24)
[2023-05-21] MEDS ORDERED: MIDAZOLAM HCL 2 MG/2 ML SINGLE DOSE VIAL ONE (11:22)
[2023-05-21] MEDS: PIPERACILLIN/TAZOBACTAM 3.375 GM VIAL IVPB ONE (11:55)
[2023-05-21] MEDS: IOHEXOL 300 MG/ML INFUS..BTL IV ONE (13:01)
[2023-05-21] MEDS ORDERED: ONDANSETRON 4 MG/2 ML VIAL IVPUSH PRN ×2 (13:02→13:33)
[2023-05-21] MEDS: LIDOCAINE HCL 1%, 10 MG/ML (20ML VIAL) INF ONE (13:02)
[2023-05-21] MEDS ORDERED: ACETAMINOPHEN 500 MG TABLET (FP) PO PRN (13:33)
[2023-05-21] MEDS: hydrALAZINE HCL 50 MG TABLET (FP) PO SCH (17:11)
[2023-05-21] MEDS: INSULIN ASPART SLIDING SCALE (NOVOLOG) 1 VIAL SQ SCH (18:03)
[2023-05-21] MEDS: VANCOMYCIN ORAL SOLUTION 125 MG/2.5 ML PO SCH (18:03)
[2023-05-21] MEDS: CALCIUM ACETATE 667 MG CAPSULE (FP) PO SCH (18:58)
[2023-05-21] MEDS: AMINO ACIDS/PROTEIN HYDROLYS 30 ML LIQUID.PKT PO SCH (18:58)
[2023-05-21] MEDS: PIPERACILLIN/TAZOB 2.25 GM 2.25 GM in DEXTROSE 5%-WATER - 50 ML IVPB SCH (18:58)
[2023-05-21] MEDS ORDERED: INSULIN (NOVOLOG) ASPART 100 UNITS/ML 10ML VIAL ONE (21:05)
[2023-05-21] MEDS: ATORVASTATIN CA 40 MG TABLET (FP) PO SCH (21:50)
[2023-05-22] MEDS ORDERED: SODIUM CHLORIDE 250 ML IV PRN (07:13)
[2023-05-22] MEDS: TAMSULOSIN HCL 0.4 MG CAP PO SCH (09:04)
[2023-05-22] MEDS: EPOETIN ALFA-EPBX 4,000 UNIT/ML VIAL IVPUSH ONE (10:05)
[2023-05-22] MEDS: VITAMIN B COMP W-C 1 EA TABLET (NEPHRO-VITE) PO SCH (14:04)
[2023-05-22] MEDS: FINASTERIDE 5 MG TABLET (FP) PO SCH (14:04)
[2023-05-22] MEDS: LACTOBACILLUS ACIDOPHILUS 1 TABLET PO SCH (14:04)
[2023-05-22] MEDS: ZINC SULFATE 220 MG CAPSULE (FP) PO SCH (14:05)
[2023-05-22] MEDS: amLODIPine BESYLATE 10 MG TABLET (FP) PO SCH (14:05)
[2023-05-22] MEDS ORDERED: INSULIN (NOVOLOG) ASPART 100 UNITS/ML 10ML VIAL ONE (17:05)
[2023-05-23] MEDS: VANCOMYCIN/WATER FOR INJ (PEG) 1,000 MG/200 ML BAG IVPB SCH (08:56)
[2023-05-23] MEDS ORDERED: INSULIN (NOVOLOG) ASPART 100 UNITS/ML 10ML VIAL ONE (17:51)
[2023-05-23] MEDS: COLLAGENASE CLOSTRIDIUM HIST. 30 GRAMS TUBE TP SCH (18:00)
[2023-05-24 09:20] LABS: BASO % 1.1 % (0-2.0); EOS % 3.3 % (0-4.5); HEMATOCRIT 30.5 % (35.4-49); HEMOGLOBIN 9.6 GM/dL (11.7-16.9); LYMPH % 5.3 % (8-40); MCH 28.6 pg (25.7-33.7); MCHC 31.5 g/dl (32.0-35.9); MEAN CELL VOLUME 90.7 fl (80-96); MEAN PLT VOLUME 7.8 fl (7.5-11.1); MONO % 6.2 % (3.8-10.2); NEUT % 84.1 % (42.8-82.8); PLATELET COUNT 393 10^3/uL (134-434); RBC 3.37 M/mm3 (4.00-5.60); RDW 17.8 % (11.9-15.9); WHITE BLOOD COUNT 9.9 K/mm3 (4.0-10.0)
[2023-05-24 09:50] LABS: CHLORIDE 104 mmol/L (98-107); SODIUM 143 mmol/L (136-145)
[2023-05-24 10:14] LABS: ALBUMIN 2.1 g/dl (3.4-5.0); CALCIUM 8.8 mg/dL (8.5-10.1)
[2023-05-24 10:15] LABS: CO2 27 mmol/L (21-32); GLUCOSE,RANDOM 94 mg/dL (74-106)
[2023-05-24 10:17] LABS: CREATININE 4.7 mg/dL (0.55-1.3); SGPT/ALT 9 U/L (13-61)
[2023-05-24 10:18] LABS: SGOT/AST 9 U/L (15-37); TOT PROT 6.9 g/dl (6.4-8.2)
[2023-05-24 10:19] LABS: BILIRUBIN,TOTAL 0.5 mg/dL (0.2-1)
[2023-05-24 10:20] LABS: ALK PHOS 120 U/L (45-117); ANION GAP 13 mmol/L (4-13); BLOOD UREA NITROGEN 57.4 mg/dL (7-18); POTASSIUM 2.9 mmol/L (3.5-5.1)
[2023-05-24] MEDS: POTASSIUM CHLORIDE TABS 20 MEQ TABLET.ER (FP) PO ONE (10:58)
[2023-05-24] MEDS ORDERED: INSULIN (NOVOLOG) ASPART 100 UNITS/ML 10ML VIAL ONE (12:13)
[2023-05-24] MEDS ORDERED: SODIUM CHLORIDE 250 ML IV PRN (18:33)
[2023-05-25 09:39] LABS: HEMATOCRIT 30.4 % (35.4-49); HEMOGLOBIN 9.3 GM/dL (11.7-16.9); MCH 28.8 pg (25.7-33.7); MCHC 30.6 g/dl (32.0-35.9); MEAN CELL VOLUME 94.1 fl (80-96); MEAN PLT VOLUME 7.6 fl (7.5-11.1); PLATELET COUNT 357 10^3/uL (134-434); RBC 3.23 M/mm3 (4.00-5.60); RDW 18.1 % (11.9-15.9); WHITE BLOOD COUNT 11.1 K/mm3 (4.0-10.0)
[2023-05-25 10:07] LABS: CHLORIDE 104 mmol/L (98-107); SODIUM 142 mmol/L (136-145)
[2023-05-25 10:08] LABS: BLOOD UREA NITROGEN 70.4 mg/dL (7-18); CALCIUM 7.9 mg/dL (8.5-10.1); CO2 25 mmol/L (21-32); GLUCOSE,RANDOM 137 mg/dL (74-106)
[2023-05-25 10:12] LABS: CREATININE 5.7 mg/dL (0.55-1.3); SGPT/ALT 7 U/L (13-61)
[2023-05-25 10:13] LABS: BILIRUBIN,TOTAL 0.4 mg/dL (0.2-1); SGOT/AST 7 U/L (15-37)
[2023-05-25 10:14] LABS: TOT PROT 6.4 g/dl (6.4-8.2)
[2023-05-25 10:15] LABS: ALK PHOS 98 U/L (45-117)
[2023-05-25 10:23] LABS: ANION GAP 12 mmol/L (4-13); POTASSIUM 2.7 mmol/L (3.5-5.1)
[2023-05-26 09:50] LABS: CHLORIDE 104 mmol/L (98-107); SODIUM 141 mmol/L (136-145)
[2023-05-26 09:53] LABS: CALCIUM 8.3 mg/dL (8.5-10.1)
[2023-05-26 09:54] LABS: CO2 29 mmol/L (21-32); GLUCOSE,RANDOM 100 mg/dL (74-106)
[2023-05-26 09:58] LABS: CREATININE 3.9 mg/dL (0.55-1.3)
[2023-05-26 10:23] LABS: ANION GAP 8 mmol/L (4-13); BLOOD UREA NITROGEN 37.4 mg/dL (7-18); POTASSIUM 2.8 mmol/L (3.5-5.1)
[2023-05-26] MEDS ORDERED: INSULIN (NOVOLOG) ASPART 100 UNITS/ML 10ML VIAL ONE ×2 (11:39→21:46)
[2023-05-26] MEDS: POTASSIUM CHLORIDE ORAL LIQUID 20 MEQ/15 ML PO ONE ×2 (11:43→19:00)
[2023-05-26] MEDS: KCL 10 MEQ IVPB 10 MEQ/100 ML INFUS.BAG IVPB SCH (14:54)
[2023-05-26 16:22] LABS: BLOOD UREA NITROGEN 45.3 mg/dL (7-18)
[2023-05-26 16:26] LABS: CREATININE 4.2 mg/dL (0.55-1.3)
[2023-05-27] MEDS ORDERED: SODIUM CHLORIDE 250 ML IV PRN (08:31)
[2023-05-27 09:11] LABS: POTASSIUM 3.1 mmol/L (3.5-5.1)
[2023-05-27 09:13] LABS: CALCIUM 7.9 mg/dL (8.5-10.1)
[2023-05-27 09:14] LABS: BLOOD UREA NITROGEN 54.6 mg/dL (7-18)
[2023-05-27 09:17] LABS: CREATININE 5.3 mg/dL (0.55-1.3)
[2023-05-27] MEDS: EPOETIN ALFA-EPBX 10,000 UNIT/ML VIAL IVPUSH ONE (10:15)
[2023-05-27] MEDS ORDERED: KCL 10 MEQ IVPB 10 MEQ/100 ML INFUS.BAG IVPB SCH (10:30)
[2023-05-27] MEDS: KCL 10 MEQ IVPB 10 MEQ/100 ML INFUS.BAG IVPB SCH (14:29)
[2023-05-27] MEDS ORDERED: PROMETHAZINE HCL 25 MG/1 ML VIAL IVPB PRN (19:38)
[2023-05-27] MEDS ORDERED: ONDANSETRON 4 MG/2 ML VIAL IVPUSH PRN (19:38)
[2023-05-27] MEDS ORDERED: INSULIN (NOVOLOG) ASPART 100 UNITS/ML 10ML VIAL ONE (21:46)
[2023-05-28] MEDS: LACTATED RINGERS SOLUTION 1,000 ML IV SCH (00:32)
[2023-05-28] MEDS: METOPROLOL TARTRATE 5 MG/5 ML VIAL IVPB ONE ×2 (01:03→01:10)
[2023-05-28] MEDS: AMOX TR/POT CLAV 250MG/125MG TABLETS PO SCH (17:40)
[2023-05-28] MEDS: DOXYCYCLINE HYCLATE 100 MG CAPSULE PO SCH (17:45)
[2023-05-29] MEDS ORDERED: INSULIN (NOVOLOG) ASPART 100 UNITS/ML 10ML VIAL ONE (11:21)
[2023-05-29 14:15] LABS: BASO % 1.1 % (0-2.0); EOS % 2.5 % (0-4.5); HEMATOCRIT 27.8 % (35.4-49); HEMOGLOBIN 8.9 GM/dL (11.7-16.9); MCH 28.6 pg (25.7-33.7); MCHC 31.8 g/dl (32.0-35.9); MEAN PLT VOLUME 8.3 fl (7.5-11.1); MONO % 6.4 % (3.8-10.2); PLATELET COUNT 291 10^3/uL (134-434); RBC 3.09 M/mm3 (4.00-5.60); RDW 17.1 % (11.9-15.9); WHITE BLOOD COUNT 10.2 K/mm3 (4.0-10.0)
[2023-05-29 14:45] LABS: POTASSIUM 3.1 mmol/L (3.5-5.1)
[2023-05-29 14:49] LABS: BLOOD UREA NITROGEN 54.5 mg/dL (7-18); CALCIUM 8.5 mg/dL (8.5-10.1)
[2023-05-29 14:50] LABS: ALBUMIN 2.2 g/dl (3.4-5.0); MAGNESIUM 1.9 mg/dL (1.8-2.4)
[2023-05-29 14:52] LABS: CREATININE 5.2 mg/dL (0.55-1.3); PHOSPHOROUS 5.4 mg/dL (2.5-4.9)
[2023-05-29 14:54] LABS: BILIRUBIN,TOTAL 0.5 mg/dL (0.2-1); TOT PROT 6.5 g/dl (6.4-8.2)
[2023-05-29] MEDS ORDERED: LIDOCAINE HCL/PF 2% SDV 5ML VIAL ONE (15:53)
[2023-05-29] MEDS ORDERED: MIDAZOLAM HCL 2 MG/2 ML SINGLE DOSE VIAL ONE (15:53)
[2023-05-29] MEDS ORDERED: PROPOFOL 20 ML ONE (15:53)
[2023-05-29] MEDS: KCL 10 MEQ IVPB 10 MEQ/100 ML INFUS.BAG IVPB SCH ×2 (16:30→19:04)
[2023-05-29] MEDS: POTASSIUM CHLORIDE ORAL LIQUID 20 MEQ/15 ML PO ONE (16:37)
[2023-05-29] MEDS ORDERED: ceFAZolin SODIUM 1 GM VIAL ONE (17:40)
[2023-05-29] MEDS: ceFAZolin SODIUM 1 GM VIAL IVPB ONE (17:41)
[2023-05-29] MEDS ORDERED: ePHEDrine SULFATE 50 MG/1 ML AMPULE ONE (18:15)
[2023-05-29] MEDS ORDERED: PROMETHAZINE HCL 25 MG/1 ML VIAL IVPB PRN ×2 (18:41→19:27)
[2023-05-29] MEDS ORDERED: ONDANSETRON 4 MG/2 ML VIAL IVPUSH PRN ×2 (18:41→19:27)
[2023-05-29] MEDS: hydrALAZINE HCL 50 MG TABLET (FP) PO SCH (21:56)
[2023-05-29] MEDS: ATORVASTATIN CA 40 MG TABLET (FP) PO SCH (21:56)
[2023-05-29 23:04] VITALS: RESP 18
[2023-05-29] MEDS: INSULIN ASPART SLIDING SCALE (NOVOLOG) 1 VIAL SQ SCH (23:25)
[2023-05-30] MEDS: AMINO ACIDS/PROTEIN HYDROLYS 30 ML LIQUID.PKT PO SCH (09:21)
[2023-05-30] MEDS: CALCIUM ACETATE 667 MG CAPSULE (FP) PO SCH (09:21)
[2023-05-30] MEDS: AMOX TR/POT CLAV 250MG/125MG TABLETS PO SCH (09:44)
[2023-05-30] MEDS: ZINC SULFATE 220 MG CAPSULE (FP) PO SCH (09:44)
[2023-05-30] MEDS: DOXYCYCLINE HYCLATE 100 MG CAPSULE PO SCH (09:45)
[2023-05-30] MEDS: FINASTERIDE 5 MG TABLET (FP) PO SCH (09:45)
[2023-05-30] MEDS: TAMSULOSIN HCL 0.4 MG CAP PO SCH (09:45)
[2023-05-30] MEDS: VITAMIN B COMP W-C 1 EA TABLET (NEPHRO-VITE) PO SCH (09:45)
[2023-05-30] MEDS: LACTOBACILLUS ACIDOPHILUS 1 TABLET PO SCH (09:45)
[2023-05-30] MEDS: amLODIPine BESYLATE 10 MG TABLET (FP) PO SCH (09:45)
[2023-05-30] MEDS: COLLAGENASE CLOSTRIDIUM HIST. 30 GRAMS TUBE TP SCH (09:47)
[2023-05-30] MEDS ORDERED: SODIUM CHLORIDE 250 ML IV PRN (12:11)
[2023-05-30] MEDS: EPOETIN ALFA-EPBX 4,000 UNIT/ML VIAL SQ ONE (13:59)
[2023-05-30] MEDS: POTASSIUM CHLORIDE ORAL LIQUID 20 MEQ/15 ML PO ONE (17:35)
[2023-05-31] MEDS: ACETAMINOPHEN 500 MG TABLET (FP) PO PRN (05:26)
[2023-05-31 08:30] LABS: BASO % 0.8 % (0-2.0); EOS % 0.8 % (0-4.5); HEMATOCRIT 24.9 % (35.4-49); HEMOGLOBIN 8.1 GM/dL (11.7-16.9); LYMPH % 6.4 % (8-40); MCHC 32.3 g/dl (32.0-35.9); MEAN CELL VOLUME 89.5 fl (80-96); MEAN PLT VOLUME 8.3 fl (7.5-11.1); MONO % 11.1 % (3.8-10.2); NEUT % 80.9 % (42.8-82.8); PLATELET COUNT 256 10^3/uL (134-434); RBC 2.79 M/mm3 (4.00-5.60); RDW 17.4 % (11.9-15.9); WHITE BLOOD COUNT 10.2 K/mm3 (4.0-10.0)
[2023-05-31 08:49] LABS: CHLORIDE 104 mmol/L (98-107); POTASSIUM 3.5 mmol/L (3.5-5.1); SODIUM 142 mmol/L (136-145)
[2023-05-31 08:54] LABS: ANION GAP 9 mmol/L (4-13); BLOOD UREA NITROGEN 31.2 mg/dL (7-18); CALCIUM 8.4 mg/dL (8.5-10.1); CO2 30 mmol/L (21-32); GLUCOSE,RANDOM 100 mg/dL (74-106)
[2023-05-31 08:57] LABS: CREATININE 3.9 mg/dL (0.55-1.3); SGOT/AST 12 U/L (15-37)
[2023-05-31 08:58] LABS: BILIRUBIN,TOTAL 0.4 mg/dL (0.2-1)
[2023-05-31 08:59] LABS: TOT PROT 6.1 g/dl (6.4-8.2)
[2023-05-31 09:00] LABS: ALK PHOS 99 U/L (45-117)
[2023-05-31 09:12] LABS: SGPT/ALT < 6 U/L (13-61)
[2023-05-31] MEDS: morphine SULFATE 4 MG/ML VIAL IVPUSH PRN (14:39)
[2023-06-01 10:15] LABS: BASO % 0.9 % (0-2.0); EOS % 2.8 % (0-4.5); HEMATOCRIT 24.4 % (35.4-49); HEMOGLOBIN 7.9 GM/dL (11.7-16.9); LYMPH % 7.6 % (8-40); MCH 29.2 pg (25.7-33.7); MCHC 32.2 g/dl (32.0-35.9); MEAN CELL VOLUME 90.6 fl (80-96); MEAN PLT VOLUME 8.5 fl (7.5-11.1); MONO % 7.4 % (3.8-10.2); NEUT % 81.3 % (42.8-82.8); PLATELET COUNT 270 10^3/uL (134-434); RDW 17.3 % (11.9-15.9); WHITE BLOOD COUNT 8.8 K/mm3 (4.0-10.0)
[2023-06-01 10:34] LABS: CHLORIDE 103 mmol/L (98-107); POTASSIUM 3.8 mmol/L (3.5-5.1); SODIUM 139 mmol/L (136-145)
[2023-06-01 10:35] LABS: CALCIUM 8.2 mg/dL (8.5-10.1)
[2023-06-01 10:36] LABS: ANION GAP 9 mmol/L (4-13); BLOOD UREA NITROGEN 47.3 mg/dL (7-18); CO2 28 mmol/L (21-32); GLUCOSE,RANDOM 84 mg/dL (74-106)
[2023-06-01 10:39] LABS: CREATININE 5.4 mg/dL (0.55-1.3); SGOT/AST 9 U/L (15-37); SGPT/ALT < 6 U/L (13-61)
[2023-06-01 10:41] LABS: BILIRUBIN,TOTAL 0.4 mg/dL (0.2-1); TOT PROT 6.2 g/dl (6.4-8.2)
[2023-06-01 10:42] LABS: ALK PHOS 93 U/L (45-117)
[2023-06-01] MEDS ORDERED: INSULIN (NOVOLOG) ASPART 100 UNITS/ML 10ML VIAL ONE (21:13)
[2023-06-02] MEDS: POLYETHYLENE GLYCOL (HEALTHYLAX) 3350 17 GM PACKET PO SCH (14:50)
[2023-06-02] MEDS ORDERED: SODIUM CHLORIDE 250 ML IV PRN (16:06)
[2023-06-02] MEDS: EPOETIN ALFA-EPBX 10,000 UNIT/ML VIAL IVPUSH ONE (16:44)
[2023-06-03] MEDS: morphine SULFATE 4 MG/ML VIAL IVPUSH SCH (11:57)
[2023-06-04] MEDS ORDERED: SODIUM CHLORIDE 250 ML IV PRN (07:17)
[2023-06-04] MEDS ORDERED: INSULIN (NOVOLOG) ASPART 100 UNITS/ML 10ML VIAL ONE (11:18)
[2023-06-04] MEDS: EPOETIN ALFA-EPBX 10,000 UNIT/ML VIAL IVPUSH ONE (15:31)
[2023-06-05 07:34] VITALS: PULSE 71
[2023-06-05 10:18] VITALS: BP 137/49; TEMP 98.6
== END 2023-06-05 13:38 | DRG 270 ==
LOC: JER 03:22 → JERBED 08:57 → OBSVTOIN 09:28 → J7W 05-10 10:20
PROVIDERS: ADMIT Family Medicine; ATTEND Family Medicine
PROC: 30233N1 Transfusion of Nonautologous Red Blood Cells into Peripheral Vein, Percutaneous Approach (ICD-10-PCS; 2023-05-10)
PROC: 5A1D70Z Performance of Urinary Filtration, Intermittent, Less than 6 Hours Per Day (ICD-10-PCS; 2023-05-12)
PROC: 5A1D70Z Performance of Urinary Filtration, Intermittent, Less than 6 Hours Per Day (ICD-10-PCS; 2023-05-13)
PROC: 047P3ZZ Dilation of Right Anterior Tibial Artery, Percutaneous Approach (ICD-10-PCS; 2023-05-21)
PROC: B40FYZZ Plain Radiography of Right Lower Extremity Arteries using Other Contrast (ICD-10-PCS; 2023-05-21)
PROC: B41DZZZ Fluoroscopy of Aorta and Bilateral Lower Extremity Arteries (ICD-10-PCS; 2023-05-21)
PROC: 04CP3ZZ Extirpation of Matter from Right Anterior Tibial Artery, Percutaneous Approach (ICD-10-PCS; principal; 2023-05-21 11:00)
PROC: 5A1D70Z Performance of Urinary Filtration, Intermittent, Less than 6 Hours Per Day (ICD-10-PCS; 2023-05-27)
PROC: 0Y6H0Z1 Detachment at Right Lower Leg, High, Open Approach (ICD-10-PCS; 2023-05-29)
PROC: 5A1D70Z Performance of Urinary Filtration, Intermittent, Less than 6 Hours Per Day (ICD-10-PCS; 2023-05-30)
PROC: 5A1D70Z Performance of Urinary Filtration, Intermittent, Less than 6 Hours Per Day (ICD-10-PCS; 2023-06-02)
DX: E11.52 Type 2 diabetes mellitus with diabetic peripheral angiopathy with gangrene (principal); N18.6 End stage renal disease; I13.2 Hypertensive heart and chronic kidney disease with heart failure and with stage 5 chronic kidney disease, or end stage renal disease; N39.0 Urinary tract infection, site not specified; E46 Unspecified protein-calorie malnutrition; I96 Gangrene, not elsewhere classified; A04.72 Enterocolitis due to Clostridium difficile, not specified as recurrent; K92.2 Gastrointestinal hemorrhage, unspecified; I50.32 Chronic diastolic (congestive) heart failure; M86.171 Other acute osteomyelitis, right ankle and foot; B97.4 Respiratory syncytial virus as the cause of diseases classified elsewhere; E11.69 Type 2 diabetes mellitus with other specified complication; E78.1 Pure hyperglyceridemia; E78.00 Pure hypercholesterolemia, unspecified; K21.9 Gastro-esophageal reflux disease without esophagitis; N40.1 Benign prostatic hyperplasia with lower urinary tract symptoms; R33.8 Other retention of urine; K76.0 Fatty (change of) liver, not elsewhere classified; E87.6 Hypokalemia; R19.7 Diarrhea, unspecified; E78.5 Hyperlipidemia, unspecified; D63.1 Anemia in chronic kidney disease; E11.22 Type 2 diabetes mellitus with diabetic chronic kidney disease; Z99.2 Dependence on renal dialysis; Z86.73 Personal history of transient ischemic attack (TIA), and cerebral infarction without residual deficits; Z68.20 Body mass index [BMI] 20.0-20.9, adult
CPT/HCPCS: 0241U-QW; 36415; 36430; 71045-TC-FY; 73610-TC-RT-FY; 73630-TC-RT-FY; 73718-TC-RT; 75635-TC; 76000-TC-FY; 78452-TC; 80048; 80053; 81003; 82272; 82550; 82607; 82728; 82746; 82803; 82962; 83036; 83540; 83550; 83605; 83615; 83735; 83993; 84100; 84466; 84484; 85025; 85027; 85610; 85651; 85730; 86140; 86803; 86850; 86900; 86901; 86922; 87040; 87045; 87046; 87086; 87324; 87340; 87449; 87493; 87517; 88307-TC; 88311-TC; 93005; 93010; 93017; 93306-TC; 94760; 97116-GP; 97161-GP; 99285-25; A9502; G0378; G0480; J0878; J1644; J1756; J2785; P9038; P9058; Q5106; Q9967